=== PATIENT | male | born 1985 | race African-American/Black ===

== ENCOUNTER 2018-09-22 08:33 | Inpatient (IN) | payer OTHER ==
[2018-09-22 09:10] VITALS: BMI 28.4
--- NOTE | 2018-09-22 10:00 | HP ---
CIWA Score Nausea/Vomitin-No Nausea/No Vomiting Muscle Tremors: 7-Severe,w/o Arm Extended Anxiety: 4-Mod. Anxious/Guarded Agitation: 1-Slight > Activity Paroxysmal Sweats: No Perspiration Orientation: 0-Oriented Tacttile Disturbances: 0-None Auditory Disturbances: 0-None Visual Disturbances: 0-None Headache: 0-None Present CIWA-Ar Total Score: 12 - Admission Criteria OASAS Guidelines: Admission for Medically Managed Detox: Requires at least one of the followin. CIWA greater than 12 2. Seizures within the past 24 hours 3. Delirium tremens within the past 24 hours 4. Hallucinations within the past 24 hours 5. Acute intervention needed for co occurring medical disorder 6. Acute intervention needed for co occurring psychiatric disorder 7. Severe withdrawal that cannot be handled at a lower level of care (continued vomiting, continued diarrhea, abnormal vital signs) requiring intravenous medication and/or fluids 8. Admission ROS S - HPI Allergies/Adverse Reactions: Allergies Allergy/AdvReac Type Severity Reaction Status Date / Time No Known Allergies Allergy Verified 09/22/18 09:40 History of Present Illness: patient here requesting detox from etoh use , reports 2 x 6-pk /day x 2 weeks , prior casual use , reports tremors if not drinking , denies seizures, blackouts , falls , starts drinking around noon. Current jer 0.094 , latest use early this morning. utox : kathie , bar pshx : left wrist s/p fall out of window 2016 , r foot ORIF 2/2 football injury 2001 pmhx : hep C (rf=IVDU heroin 1 yr ago ) diagnosed 6 months ago , no treatment as of yet illicits : cannabis since age 10 , etoh since age 11 , cocaine 19, crack cocaine 26 , heroin since age 28 latest use heroin 2 days ago , claims 1 bag IVDU in [place] UE , needles from the exchange , + sharing , + re-using , + abscess right arm 18 months ago MRSA , was at [facility] in [facility] , denies OD cocaine : 50 $ 2 x/week unemployed , finances habit through odd jobs legal : on probation for rivera huongcen[employer] ( taking [employer] phone ) x 3 years tobacco : 1/2 ppd requesting nrt w/ patch psych : ADHD , PTSD from childhood trauma, depression Exam Limitations: No Limitations - Ebola screening Have you traveled outside of the country in the last 21 days: No Have you had contact with anyone from an Ebola affected area: No Have you been sick,other than usual withdrawal symptoms: No Do you have a fever: No - Review of Systems Constitutional: See HPI EENT: reports: Nose Congestion, Other (glasses) Respiratory: reports: No Symptoms reported Cardiac: reports: No Symptoms Reported GI: reports: No Symptoms Reported : reports: No Symptoms Reported Musculoskeletal: reports: No Symptoms Reported Integumentary: reports: No Symptoms Reported Neuro: reports: No Symptoms reported Psychiatric: reports: Judgement Intact, Orientated x3, Anxious, Depressed Patient History - Patient Medical History Hx Asthma: No Hx Chronic Obstructive Pulmonary Disease (COPD): No Hx Cardiac Disorders: No Hx Hypertension: No Hx Seizures: No Hx Diabetes: No Hx Gastrointestinal Disorders: No Hx Genitourinary Disorders: No Hx Sexually Transmitted Disorders: No Hx Renal Disease (ESRD): No Hx Depression: Yes Hx Suicide Attempt: No Hx Schizophrenia: No - Patient Surgical History Past Surgical History: Yes Hx Neurologic Surgery: No Hx Cataract Extraction: No Hx Cardiac Surgery: No Hx Lung Surgery: No Hx Breast Surgery: No Hx Breast Biopsy: No Hx Abdominal Surgery: No Hx Appendectomy: No Hx Cholecystectomy: No Hx Genitourinary Surgery: No Hx Section: No Hx Orthopedic Surgery: Yes (fx, left wrist and right foot) Anesthesia Reaction: No - PPD History Previous Implant?: Yes Documented Results: Negative w/o proof Implanted On Prior R Admission?: No - Smoking Cessation Smoking history: Current every day smoker Have you smoked in the past 12 months: Yes Aproximately how many cigarettes per day: 10 Hx Chewing Tobacco Use: No Initiated information on smoking cessation: No - Substances Abused Crack Route: Smoking Frequency: 1-2 times per week Amount used: $50 Age of first use: 26 Date of Last Use: 09/21/18 Alcohol-beer/vodka Route: Oral Frequency: Daily Amount used: 1-2 6 pks./1 pt. Age of first use: 11 Date of Last Use: 09/21/18 Family Disease History - Family Disease History Family Disease History: Other: Mother (depression, PTSD ), Sister (bipolar d/o , SAD ) Admission Physical Exam BHS - Vital Signs Vital Signs: Vital Signs - 24 hr 09/22/18 09:07 Temperature 96.7 F L Pulse Rate 88 Respiratory 20 Rate Blood Pressure 143/72 - Physical General Appearance: Yes: Disheveled, Moderate Distress, Alcohol on Breath, Anxious HEENTM: Yes: Hearing grossly Normal, Normocephalic, Normal Voice, Pharynx Normal , Nasal Congestion Respiratory: Yes: Chest Non-Tender, Lungs Clear, Normal Breath Sounds Neck: Yes: No masses,lesions,Nodules, Trachea in good position Breast: Yes: Breast Exam Deferred Cardiology: Yes: Regular Rhythm, Regular Rate, S1, S2, Tachycardia Abdominal: Yes: Normal Bowel Sounds, Non Tender, Soft Genitourinary: Yes: Within Normal Limits Back: Yes: Normal Inspection Musculoskeletal: Yes: full range of Motion, Gait Steady Extremities: Yes: Normal Capillary Refill, Normal Inspection, Normal Range of Motion Neurological: Yes: Fully Oriented, Alert, Motor Strength 5/5 Integumentary: Yes: Normal Color, Dry, Warm, Track Lynn ([place] UE R >> left) Lymphatic: Yes: Within Normal Limits - Diagnostic (1) Alcohol dependence Current Visit: Yes Status: Acute Qualifiers: Substance use status: in withdrawal Complication of substance-induced condition: uncomplicated Qualified Code(s): F10.230 - Alcohol dependence with withdrawal, uncomplicated (2) Nicotine dependence Current Visit: Yes Status: Acute Qualifiers: Nicotine product type: cigarettes (3) Cocaine dependence Current Visit: Yes Status: Acute Qualifiers: Substance use status: uncomplicated Qualified Code(s): F14.20 - Cocaine dependence, uncomplicated BHS Breath Alcohol Content Breath Alcohol Content: 0.094 Urine Drug Screen - Results Drug Screen Negative: No Urine Drug Screen Results: KATHIE-Cocaine, BAR-Barbiturates
[2018-09-22] MEDS ORDERED: ACETAMINOPHEN 325 MG TABLET (FP) PO PRN (10:05)
[2018-09-22] MEDS ORDERED: guaiFENesin/D-METHORPHAN HB 10 ML UNIT-DOSE CUPS PO PRN (10:05)
[2018-09-22] MEDS ORDERED: MENTHOL/PHENOL 1 EACH UD MM PRN (10:05)
[2018-09-22] MEDS ORDERED: P-EPHED 60MG/TRIPROLIDI 2.5MG TABLET PO PRN (10:05)
[2018-09-22] MEDS ORDERED: MAGNESIUM CITRATE 300 ML BOTTLE PO PRN (10:05)
[2018-09-22] MEDS ORDERED: chlordiazePOXIDE HCL 25 MG CAPSULE PO PRN (10:05)
[2018-09-22] MEDS ORDERED: IBUPROFEN 400 MG TABLET (FP) PO PRN (10:05)
[2018-09-22] MEDS ORDERED: MAG HYDROX/AL HYDROX/SIMETH 30 ML UNIT-DOSE CUP PO PRN (10:05)
[2018-09-22] MEDS ORDERED: MAGNESIUM HYDROX 2400MG/30ML ORAL SUSPENSION 30 ML CUP PO PRN (10:05)
[2018-09-22] MEDS: NICOTINE 14 MG/24 HOURS TOPICAL PATCH TD SCH (12:31)
--- NOTE | 2018-09-22 13:21 | CONSULT ---
[facility] Psychiatric Consult - Data Date of interview: 09/22/18 Admission source: [facility] Identifying data: First admission to [facility] for this 33 y/o male seeking detoxification treatment on 3 for alcohol,cocaine (crack) and heroin dependence. Patient is single, a father of one, domiciled, currently unemployed and supported on odd jobs. Substance Abuse History: Smoking history: Current every day smoker. Have you smoked in the past 12 months: Yes. Aproximately how many cigarettes per day: 10. Hx Chewing Tobacco Use: No. Initiated information on smoking cessation: Yes. - Substances Abused. Crack. Route: Smoking. Frequency: 1-2 times per week. Amount used: $50. Age of first use: 26. Date of Last Use: . Alcohol-beer/vodka. Route: Oral. Frequency: Daily. Amount used: 1-2 6 pks./1 pt. Age of first use: 11. Date of Last Use: 09/21/18 Medical History: History of MERSA infection (abcess of right arm) about 18 months ago, orthosurgery (ORIF procedure) in 2001 for fracture of right foot from sports (football) injury and fracture of left wrist (fall from a window in 2016). Patient endorses good general health in this interview. Psychiatric History: No reported history of psychiatric hospitalizations. Patient declares current psychiatric OPD care at the [facility] in [place], [place]. Diagnosed with ADHD, MDD and PTSD. Mr Snow is prescribed wellbutrin, vistaril and other (unnamed) medications. Denies history of suicide attempts. Physical/Sexual Abuse/Trauma History: Patient declines to discuss issues pertinent to traumas in childhood/adolescence. Additional Comment: Urine Drug Screen Results: JT-Cocaine, BAR-Barbiturates. Noted. Mental Status Exam - Mental Status Exam Alert and Oriented to: Time, Place, Person Cognitive Function: Good Patient Appearance: Well Groomed (muscular built ; tattoos on both arms ) Mood: Nervous, Apprehensive, Hopeful Affect: Appropriate, Mood Congruent Patient Behavior: Appropriate, Cooperative Speech Pattern: Clear Voice Loudness: Normal Thought Process: Goal Oriented Thought Disorder: Not Present Hallucinations: Denies Suicidal Ideation: Denies Homicidal Ideation: Denies Insight/Judgement: Poor Sleep: Fair Appetite: Good Muscle strength/Tone: Normal Gait/Station: Normal Psychiatric Findings - Problem List ([place] 1, 2,3) (1) Alcohol dependence Current Visit: Yes Status: Acute Qualifiers: Substance use status: in withdrawal Complication of substance-induced condition: uncomplicated Qualified Code(s): F10.230 - Alcohol dependence with withdrawal, uncomplicated (2) Cocaine dependence Current Visit: Yes Status: Acute Qualifiers: Substance use status: uncomplicated Qualified Code(s): F14.20 - Cocaine dependence, uncomplicated (3) Nicotine dependence Current Visit: Yes Status: Acute Qualifiers: Nicotine product type: cigarettes (4) Substance induced mood disorder Current Visit: Yes Status: Acute (5) Post traumatic stress disorder (PTSD) Current Visit: Yes Status: Chronic Comment: On medications. Self-report. - Initial Treatment Plan Initial Treatment Plan: Psychoeducation. Sleep hygiene. Detoxification. Pharmacy claims reviewed for verification : refills were issued on 08/24/18 for wellbutrin, methylphenidate and prazosin ([facility]). Will resume wellbutrin XL 150 mg po daily. Patient is made aware of the risk of seizures. Mr Snow consents (verbally) to this careplan. Observation.
[2018-09-22] MEDS: chlordiazePOXIDE HCL 25 MG CAPSULE PO SCH ×2 (16:53→22:09)
[2018-09-22 17:08] LABS: URINE APPEARANCE SLCLOUDY; URINE BILIRUBIN NEGATIVE (<2.0 mg/dL); URINE COLOR YELLOW; URINE GLUCOSE (UA) NEGATIVE (NEGATIVE); URINE KETONE TRACE (NEGATIVE); URINE LEUK ESTERASE NEGATIVE (NEGATIVE); URINE NITRITE NEGATIVE (NEGATIVE); URINE PROTEIN 1+ (NEGATIVE); URINE UROBILINOGEN NEGATIVE mg/dL (0.2-1.0)
[2018-09-22 17:42] LABS: EPI CELLS RARE /HPF (FEW); URINE MUCUS FEW
[2018-09-22] MEDS: THIAMINE HCL 100 MG TABLET (FP) PO SCH (22:08)
[2018-09-22] MEDS: MELATONIN 5 MG TABLETS PO PRN (22:09)
[2018-09-23] MEDS: chlordiazePOXIDE HCL 25 MG CAPSULE PO SCH ×4 (05:03→22:02)
[2018-09-23] MEDS: PRENATAL VITAMINS W/ FOLIC ACID TABLET (FP) PO SCH (10:06)
[2018-09-23] MEDS: NICOTINE 14 MG/24 HOURS TOPICAL PATCH TD SCH (10:07)
--- NOTE | 2018-09-23 10:21 | PN ---
S CIWA - CIWA Score Nausea/Vomitin-No Nausea/No Vomiting Muscle Tremors: 2 Anxiety: 3 Agitation: 2 Paroxysmal Sweats: 3 Orientation: 0-Oriented Tacttile Disturbances: 0-None Auditory Disturbances: 0-None Visual Disturbances: 0-None Headache: 0-None Present CIWA-Ar Total Score: 10 BHS Progress Note (SOAP) Subjective: PATIENT C/O ANXIETY, RESTLESSNESS, CHILLS, SWEATS, AND SHAKES. Objective: 09/23/18 10:16 Vital Signs Temperature 96.9 F L 09/23/18 09:20 Pulse Rate 69 09/23/18 09:20 Respiratory Rate 17 09/23/18 09:20 Blood Pressure 125/63 09/23/18 09:20 O2 Sat by Pulse Oximetry (%) Laboratory Tests 09/22/18 09/22/18 11:25 12:35 Urine Color Yellow Urine Appearance Slcloudy Urine pH 5.0 Ur Specific [place] 1.029 Urine Protein 1+ H Urine Glucose (UA) Negative Urine Ketones Trace H Urine Blood Negative Urine Nitrite Negative Urine Bilirubin Negative Urine Urobilinogen Negative Ur Leukocyte Esterase Negative Urine WBC (Auto) 1 Urine RBC (Auto) None Ur Epithelial Cells Rare Urine Mucus Few HIV 1&2 Antibody Screen Negative HIV P24 Antigen Negative PE: ALERT AND ORIENTED X 3 SKIN WARM, MOIST, + GOOSEFLESH CAR S1S2 RESP CTA BL EXT +TREMORS, FULL ROM AMB AD RAFA +ANXIETY Assessment: 09/23/18 10:21 WITHDRAWAL SX Plan: CONTINUE DETOX ENCOURAGE ORAL FLUIDS CONTINUE TO MONITOR CLINICALLY
[2018-09-23 10:44] LABS: HEMATOCRIT 41.9 % (35.4-49); HEMOGLOBIN 13.5 GM/dL (11.7-16.9); MCH 27.9 pg (25.7-33.7); MCHC 32.2 g/dl (32.0-35.9); MEAN CELL VOLUME 86.6 fl (80-96); MEAN PLT VOLUME 8.3 fl (7.5-11.1); PLATELET COUNT 250 K/MM3 (134-434); RBC 4.84 M/mm3 (4.00-5.60); RDW 14.2 % (11.9-15.9); WHITE BLOOD COUNT 6.8 K/mm3 (4.0-10.0)
[2018-09-23 11:28] LABS: ALBUMIN 3.8 g/dl (3.4-5.0); ALK PHOS 83 U/L (45-117); ANION GAP 12 MMOL/L (8-16); BILIRUBIN,TOTAL 0.3 mg/dL (0.2-1); BLOOD UREA NITROGEN 19 mg/dL (7-18); CALCIUM 8.3 mg/dL (8.5-10.1); CHLORIDE 105 mmol/L (98-107); CO2 22 mmol/L (21-32); GLUCOSE,RANDOM 65 mg/dL (74-106); POTASSIUM 4.2 mmol/L (3.5-5.1); SGOT/AST 59 U/L (15-37); SGPT/ALT 92 U/L (13-61); SODIUM 139 mmol/L (136-145); TOT PROT 7.6 g/dl (6.4-8.2)
[2018-09-23] MEDS: NICOTINE POLACRILEX 2 MG GUM BUC PRN (21:31)
[2018-09-23] MEDS: THIAMINE HCL 100 MG TABLET (FP) PO SCH (22:02)
[2018-09-23] MEDS: MELATONIN 5 MG TABLETS PO PRN (22:03)
[2018-09-24] MEDS: chlordiazePOXIDE HCL 25 MG CAPSULE PO SCH ×2 (05:11→10:13)
[2018-09-24] MEDS: NICOTINE 14 MG/24 HOURS TOPICAL PATCH TD SCH (10:11)
[2018-09-24] MEDS: PRENATAL VITAMINS W/ FOLIC ACID TABLET (FP) PO SCH (10:12)
[2018-09-24] MEDS: NICOTINE POLACRILEX 2 MG GUM BUC PRN ×3 (10:14→20:00)
--- NOTE | 2018-09-24 10:29 | PN ---
[facility] CIWA - CIWA Score Nausea/Vomitin-No Nausea/No Vomiting Muscle Tremors: 3 Anxiety: 3 Agitation: 3 Paroxysmal Sweats: 3 Orientation: 0-Oriented Tacttile Disturbances: 0-None Auditory Disturbances: 0-None Visual Disturbances: 0-None Headache: 0-None Present CIWA-Ar Total Score: 12 S Progress Note (SOAP) Subjective: PATIENT C/O ANXIETY/RESTLESSNESS, NIGHT SWEATS AND SHAKES (COME AND GO) Objective: 09/24/18 10:27 Vital Signs Temperature 97.0 F L 09/24/18 09:16 Pulse Rate 73 09/24/18 09:16 Respiratory Rate 18 09/24/18 09:16 Blood Pressure 126/65 09/24/18 09:16 O2 Sat by Pulse Oximetry (%) Laboratory Tests 09/22/18 09/22/18 09/23/18 11:25 12:35 06:00 WBC 6.8 RBC 4.84 Hgb 13.5 Hct 41.9 MCV 86.6 MCH 27.9 MCHC 32.2 RDW 14.2 Plt Count 250 MPV 8.3 Sodium Potassium Chloride Carbon Dioxide Anion Gap BUN Creatinine Creat Clearance w eGFR Random Glucose Calcium Total Bilirubin AST ALT Alkaline Phosphatase Total Protein Albumin Urine Color Yellow Urine Appearance Slcloudy Urine pH 5.0 Ur Specific [place] 1.029 Urine Protein 1+ H Urine Glucose (UA) Negative Urine Ketones Trace H Urine Blood Negative Urine Nitrite Negative Urine Bilirubin Negative Urine Urobilinogen Negative Ur Leukocyte Esterase Negative Urine WBC (Auto) 1 Urine RBC (Auto) None Ur Epithelial Cells Rare Urine Mucus Few RPR Titer HIV 1&2 Antibody Screen Negative HIV P24 Antigen Negative 09/23/18 09/23/18 06:00 06:00 WBC RBC Hgb Hct MCV MCH MCHC RDW Plt Count MPV Sodium 139 Potassium 4.2 Chloride 105 Carbon Dioxide 22 Anion Gap 12 BUN 19 H Creatinine 1.0 Creat Clearance w eGFR > 60 Random Glucose 65 L Calcium 8.3 L Total Bilirubin 0.3 AST 59 H ALT 92 H Alkaline Phosphatase 83 Total Protein 7.6 Albumin 3.8 Urine Color Urine Appearance Urine pH Ur Specific [place] Urine Protein Urine Glucose (UA) Urine Ketones Urine Blood Urine Nitrite Urine Bilirubin Urine Urobilinogen Ur Leukocyte Esterase Urine WBC (Auto) Urine RBC (Auto) Ur Epithelial Cells Urine Mucus RPR Titer Nonreactive HIV 1&2 Antibody Screen HIV P24 Antigen PE: ALERT AND ORIENTED X 3 SKIN + GOOSE FLESH, WARM AND MOIST CAR S1S2 RESP CTA BL EXT + TREMORS ANXIOUS Assessment: 09/24/18 10:28 WITHDRAWAL SX Plan: CONTINUE DETOX ENCOURAGE ORAL FLUIDS CONTINUE TO MONITOR CLINICALLY
[2018-09-24] MEDS: chlordiazePOXIDE 5 MG CAPSULE PO SCH ×2 (17:15→22:05)
[2018-09-24] MEDS: THIAMINE HCL 100 MG TABLET (FP) PO SCH (22:05)
[2018-09-24] MEDS: MELATONIN 5 MG TABLETS PO PRN (22:06)
[2018-09-25] MEDS: chlordiazePOXIDE 5 MG CAPSULE PO SCH ×2 (06:08→10:21)
[2018-09-25] MEDS: PRENATAL VITAMINS W/ FOLIC ACID TABLET (FP) PO SCH (10:21)
[2018-09-25] MEDS: NICOTINE 14 MG/24 HOURS TOPICAL PATCH TD SCH (10:21)
[2018-09-25] MEDS: NICOTINE POLACRILEX 2 MG GUM BUC PRN ×3 (10:21→19:20)
--- NOTE | 2018-09-25 11:06 | PN ---
[facility] Progress Note Note: PATIENT PRESENTS WITH SLEEP DISTURBANCE AND SWEATING, BUT FEELS BETTER. FOR D/C IN AM. Vital Signs Temperature 96.4 F L 09/25/18 10:01 Pulse Rate 74 09/25/18 10:01 Respiratory Rate 19 09/25/18 10:01 Blood Pressure 115/66 09/25/18 10:01 O2 Sat by Pulse Oximetry (%) Laboratory Last Values WBC 6.8 K/mm3 (4.0-10.0) 09/23/18 06:00 RBC 4.84 M/mm3 (4.00-5.60) 09/23/18 06:00 Hgb 13.5 GM/dL (11.7-16.9) 09/23/18 06:00 Hct 41.9 % (35.4-49) 09/23/18 06:00 MCV 86.6 fl (80-96) 09/23/18 06:00 MCH 27.9 pg (25.7-33.7) 09/23/18 06:00 MCHC 32.2 g/dl (32.0-35.9) 09/23/18 06:00 RDW 14.2 % (11.9-15.9) 09/23/18 06:00 Plt Count 250 K/MM3 (134-434) 09/23/18 06:00 MPV 8.3 fl (7.5-11.1) 09/23/18 06:00 Sodium 139 mmol/L (136-145) 09/23/18 06:00 Potassium 4.2 mmol/L (3.5-5.1) 09/23/18 06:00 Chloride 105 mmol/L (98-107) 09/23/18 06:00 Carbon Dioxide 22 mmol/L (21-32) 09/23/18 06:00 Anion Gap 12 MMOL/L (8-16) 09/23/18 06:00 BUN 19 mg/dL (7-18) H 09/23/18 06:00 Creatinine 1.0 mg/dL (0.55-1.3) 09/23/18 06:00 Creat Clearance w eGFR > 60 (>60) 09/23/18 06:00 Random Glucose 65 mg/dL (74-106) L 09/23/18 06:00 Calcium 8.3 mg/dL (8.5-10.1) L 09/23/18 06:00 Total Bilirubin 0.3 mg/dL (0.2-1) 09/23/18 06:00 AST 59 U/L (15-37) H 09/23/18 06:00 ALT 92 U/L (13-61) H 09/23/18 06:00 Alkaline Phosphatase 83 U/L (45-117) 09/23/18 06:00 Total Protein 7.6 g/dl (6.4-8.2) 09/23/18 06:00 Albumin 3.8 g/dl (3.4-5.0) 09/23/18 06:00 Urine Color Yellow 09/22/18 12:35 Urine Appearance Slcloudy 09/22/18 12:35 Urine pH 5.0 (5.0-8.0) 09/22/18 12:35 Ur Specific [place] 1.029 (1.010-1.035) 09/22/18 12:35 Urine Protein 1+ (NEGATIVE) H 09/22/18 12:35 Urine Glucose (UA) Negative (NEGATIVE) 09/22/18 12:35 Urine Ketones Trace (NEGATIVE) H 09/22/18 12:35 Urine Blood Negative (NEGATIVE) 09/22/18 12:35 Urine Nitrite Negative (NEGATIVE) 09/22/18 12:35 Urine Bilirubin Negative (<2.0 mg/dL) 09/22/18 12:35 Urine Urobilinogen Negative mg/dL (0.2-1.0) 09/22/18 12:35 Ur Leukocyte Esterase Negative (NEGATIVE) 09/22/18 12:35 Urine WBC (Auto) 1 /hpf (3-5) 09/22/18 12:35 Urine RBC (Auto) None /hpf (0-3) 09/22/18 12:35 Ur Epithelial Cells Rare /HPF (FEW) 09/22/18 12:35 Urine Mucus Few 09/22/18 12:35 RPR Titer Nonreactive (NONREACTIVE) 09/23/18 06:00 HIV 1&2 Antibody Screen Negative 09/22/18 11:25 HIV P24 Antigen Negative 09/22/18 11:25 PE: ALERT AND ORIENTED X 3 SKIN WARM AND MOIST EXT FULL ROM, NO TREMORS AMB AD RAFA WITHDRAWAL SX CONTINUE DETOX ENCOURAGE FLUIDS D/C IN AM
[2018-09-25] MEDS: chlordiazePOXIDE HCL 10 MG CAPSULE PO SCH ×2 (17:12→22:06)
[2018-09-25] MEDS: THIAMINE HCL 100 MG TABLET (FP) PO SCH (22:06)
[2018-09-25] MEDS: MELATONIN 5 MG TABLETS PO PRN (22:06)
[2018-09-26] MEDS: chlordiazePOXIDE HCL 10 MG CAPSULE PO SCH (05:27)
[2018-09-26 09:34] VITALS: BP 111/69; PULSE 69; TEMP 96.6
--- NOTE | 2018-09-26 10:53 | PN ---
BHS Progress Note (SOAP) Subjective: DETOX COMPLETED. ALERT O X 3 PT SAW THE COUNSELOR BEFORE LEAVING. INFORMATION ON AFTERCARE PROVIDED TO PATIENT. Objective: 09/26/18 10:52 Vital Signs 09/26/18 09/26/18 09/26/18 03:30 06:21 06:26 Temperature 97.1 F L Pulse Rate 60 Respiratory 18 18 18 Rate Blood Pressure 106/68 09/26/18 09:30 Temperature 96.6 F L Pulse Rate 69 Respiratory 18 Rate Blood Pressure 111/69 Assessment: 09/26/18 10:53 NAD Plan: D/C PT TODAY FOLLOW UP WITH AFTERCARE
--- NOTE | 2018-09-26 10:56 | DS ---
[facility] Detox Discharge Summary Admission Date: 09/22/18 Discharge Date: 09/26/18 - History Present History: Alcohol Dependence, Cocaine Dependence Pertinent Past History: PLEASE PROBLEM LIST - Physical Exam Results Vital Signs: Vital Signs Temperature 96.6 F L 09/26/18 09:30 Pulse Rate 69 09/26/18 09:30 Respiratory Rate 18 09/26/18 09:30 Blood Pressure 111/69 09/26/18 09:30 O2 Sat by Pulse Oximetry (%) Pertinent Admission Physical Exam Findings: WITHDRAWAL SX - Treatment Hospital Course: Detox Protocol Followed, Detoxed Safely, Responded well, Discharged Condition Good - Medication Discharge Medications: Ambulatory Orders Unobtainable 09/22/18 - Diagnosis (1) Alcohol dependence with uncomplicated withdrawal Status: Acute (2) Cocaine dependence Status: Acute Qualifiers: Substance use status: uncomplicated Qualified Code(s): F14.20 - Cocaine dependence, uncomplicated (3) Nicotine dependence Status: Acute Qualifiers: Nicotine product type: cigarettes Substance use status: in withdrawal Qualified Code(s): F17.213 - Nicotine dependence, cigarettes, with withdrawal - AMA Did Patient Leave Against Medical Advice: No
== END 2018-09-26 10:06 | disposition home or self-care (01) | DRG 774 ==
LOC: YASAS 08:33 → Y3N 10:55
PROC: HZ2ZZZZ Detoxification Services for Substance Abuse Treatment (ICD-10-PCS; principal; 2018-09-22)
DX: F10.230 Alcohol dependence with withdrawal, uncomplicated (principal); F14.20 Cocaine dependence, uncomplicated; F17.213 Nicotine dependence, cigarettes, with withdrawal; F19.24 Other psychoactive substance dependence with psychoactive substance-induced mood disorder; F43.10 Post-traumatic stress disorder, unspecified
CPT/HCPCS: 36415; 80053; 81003; 81015; 85027; 86593; 87389

== ENCOUNTER 2019-03-10 08:13 | Inpatient (IN) | payer OTHER ==
[2019-03-10 08:43] VITALS: BMI 28.5
--- NOTE | 2019-03-10 09:15 | HP ---
COWS - Scale Resting Pulse: 1= [place] 81-100 Sweatin= Chills/Flushing Restless Observation: 3= Extraneous Movement Pupil Size: 1= Pupils >than Normal Bone or Joint Aches: 2= Severe Diffuse Aches Runny Nose/ Eye Tearin= Runny Nose/Eyes GI Upset > 30mins: 2= Nausea/Diarrhea Tremor Observation: 2= Slight Tremor Visible Yawning Observation: 1= 1-2x During Session Anxiety or Irritability: 2=Irritable/Anxious Goose Flesh Skin: 0=Smooth Skin COWS Score: 17 CIWA Score - Admission Criteria [facility]ASAS Guidelines: Admission for Medically Managed Detox: Requires at least one of the followin. CIWA greater than 12 2. Seizures within the past 24 hours 3. Delirium tremens within the past 24 hours 4. Hallucinations within the past 24 hours 5. Acute intervention needed for co occurring medical disorder 6. Acute intervention needed for co occurring psychiatric disorder 7. Severe withdrawal that cannot be handled at a lower level of care (continued vomiting, continued diarrhea, abnormal vital signs) requiring intravenous medication and/or fluids 8. Admission ROS S - HPI Chief Complaint: i need help to stop heroin and crack and alcohol Allergies/Adverse Reactions: Allergies Allergy/AdvReac Type Severity Reaction Status Date / Time No Known Allergies Allergy Verified 03/10/19 08:28 History of Present Illness: this 34 years old garcia=ith heroin,crack and alcohol dependence,seeking detix, withdrawal symptom last detox 09/22/18 to 09/26/18 hepatitis c no treatment nicotine dependence 1 pack/day,would like nicotine patch and gum had previous admissions in detox longest period of sobriety 13 months ptsd,depression,adhd,anxiety last medication 1 month ago Exam Limitations: No Limitations - Ebola screening Have you traveled outside of the country in the last 21 days: No (N) Have you had contact with anyone from an Ebola affected area: No Do you have a fever: No - Review of Systems Constitutional: Chills, Loss of Appetite, Malaise, Night Sweats, Changes in sleep, Weakness EENT: reports: Tearing, Nose Congestion Respiratory: reports: No Symptoms reported Cardiac: reports: No Symptoms Reported GI: reports: Nausea, Poor Appetite, Abdominal cramping Musculoskeletal: reports: Back Pain, Joint Pain, Muscle Pain, Joint Stiffness Integumentary: reports: Dryness Neuro: reports: Headache, Tremors Endocrine: reports: No Symptoms Reported Hematology: reports: No Symptoms Reported Psychiatric: reports: No Sypmtoms Reported, Judgement Intact, Mood/Affect Appropiate, Orientated x3 Other Systems: Reviewed and Negative Patient History - Patient Medical History Hx Anemia: No Hx Asthma: No Hx Chronic Obstructive Pulmonary Disease (COPD): No Hx Cancer: No Hx Cardiac Disorders: No Hx Congestive Heart Failure: No Hx Hypertension: No Hx Hypercholesterolemia: No Hx Pacemaker: No HX Cerebrovascular Accident: No Hx Seizures: No Hx Dementia: No Hx Diabetes: No Hx Gastrointestinal Disorders: No Hx Liver Disease: No Hx Genitourinary Disorders: No Hx Sexually Transmitted Disorders: No Hx Renal Disease (ESRD): No Hx Thyroid Disease: No Hx Human Immunodeficiency Virus (HIV): No (last 02/12 negative) Hx Hepatitis C: Yes (no treatment) Hx Depression: Yes Hx Suicide Attempt: No Hx Bipolar Disorder: No Hx Schizophrenia: No Other Medical History: anxiety,ptsd,adhd,insomnia - Patient Surgical History Past Surgical History: Yes Hx Neurologic Surgery: No Hx Cataract Extraction: No Hx Cardiac Surgery: No Hx Lung Surgery: No Hx Breast Surgery: No Hx Breast Biopsy: No Hx Abdominal Surgery: No Hx Appendectomy: No Hx Cholecystectomy: No Hx Genitourinary Surgery: No Hx Section: No Hx Orthopedic Surgery: Yes (fx, left wrist and right foot 2017 vasser brother ) Anesthesia Reaction: No - PPD History Previous Implant?: Yes Documented Results: Negative w/proof Implanted On Prior R Admission?: Yes Date: 09/24/18 Results: 0 mm PPD to be Administered?: No - Smoking Cessation Smoking history: Current every day smoker Have you smoked in the past 12 months: Yes Aproximately how many cigarettes per day: 20 Hx Chewing Tobacco Use: No Initiated information on smoking cessation: Yes 'Breaking Loose' booklet given: 03/10/19 - Substance & Tx. History Hx Alcohol Use: Yes Hx Substance Use: Yes Substance Use Type: Alcohol, Cocaine, Heroin Hx Substance Use Treatment: Yes (C 09/22/18 to 09/26/18) - Substances abused Crack Substance route: Smoking Frequency: Daily Amount used: 2 gram Age of first use: 26 Date of last use: 03/10/19 Heroin Substance route: Injection Frequency: Daily Amount used: 1 to 2 grams 10 to 20 bags Age of first use: 26 Date of last use: 03/10/19 Other Other (specify): Jenny Substance route: Oral Frequency: 1-2 times per week Amount used: 1 gram Age of first use: 26 Date of last use: 03/08/19 Alcohol Substance route: Oral Frequency: Daily Amount used: 6 packs of 24 ozs of beer Age of first use: 13 Date of last use: 03/10/19 Family Disease History - Family Disease History Family Disease History: Other: Mother (depression, PTSD ), Sister (bipolar d/o , SAD ) Admission Physical Exam [facility] - Vital Signs Vital Signs: Vital Signs - 24 hr 03/10/19 08:28 Temperature 97.0 F L Pulse Rate 90 Respiratory 18 Rate Blood Pressure 126/68 - Physical General Appearance: Yes: Moderate Distress, Tremorous, Irritable, Sweating, Anxious HEENTM: Yes: Normal ENT Inspection, RAQUEL, Pharynx Normal Respiratory: Yes: Within Normal Limits, Lungs Clear, Normal Breath Sounds, No Respiratory Distress Neck: Yes: Within Normal Limits, Supple, Trachea in good position Breast: Yes: Within Normal Limits Cardiology: Yes: Within Normal Limits, Regular Rhythm, Regular Rate, S1, S2 Abdominal: Yes: Within Normal Limits, Normal Bowel Sounds, Non Tender, Flat, Soft Genitourinary: Yes: Within Normal Limits Back: Yes: Muscle Spasm Musculoskeletal: Yes: full range of Motion, Back pain, Muscle Pain Extremities: Yes: Normal Capillary Refill, Normal Inspection, Normal Range of Motion, Other (scar of left wrist) Neurological: Yes: jowl trimmer II-XII NML intact, Fully Oriented, Alert, Motor Strength 5/5 Integumentary: Yes: Dry, Track [place], Other (abrasion of both legs) Lymphatic: Yes: Within Normal Limits - Diagnostic (1) Opioid dependence with withdrawal Current Visit: Yes Status: Acute (2) Alcohol dependence with uncomplicated withdrawal Current Visit: No Status: Acute (3) Cocaine dependence Current Visit: No Status: Acute Qualifiers: Substance use status: uncomplicated Qualified Code(s): F14.20 - Cocaine dependence, uncomplicated (4) Nicotine dependence Current Visit: No Status: Acute Qualifiers: Nicotine product type: cigarettes Substance use status: in withdrawal Qualified Code(s): F17.213 - Nicotine dependence, cigarettes, with withdrawal (5) Post traumatic stress disorder (PTSD) Current Visit: No Status: Chronic Comment: On medications. Self-report. (6) Hepatitis C Current Visit: Yes Status: Acute (7) Insomnia secondary to depression with anxiety Current Visit: Yes Status: Acute (8) IVDU (intravenous drug user) Current Visit: Yes Status: Acute Cleared for Admission S - Detox or Rehab [facility] Level of Care: Medically Managed Detox Regimen/Protocol: Methadone/Valium Breathalyzer - Breathalyzer Breathalyzer: 0.017 Urine Drug Screen - Test Device Lot number: [id number] Expiration date: 11/26/20 - Control Is test valid?: Yes - Results Drug screen NEGATIVE: No Urine drug screen results: THC-Marijuana, JT-Cocaine, MET-Methamphetamine, OXY- Oxycodone Inpatient Rehab Admission - Rehab Decision to Admit Inpatient rehab admission?: No
[2019-03-10] MEDS ORDERED: cloNIDine HCL 0.1 MG TABLET PO PRN (09:31)
[2019-03-10] MEDS ORDERED: MAGNESIUM CITRATE 300 ML BOTTLE PO PRN (09:39)
[2019-03-10] MEDS ORDERED: ACETAMINOPHEN 325 MG TABLET (FP) PO PRN ×2 (09:39)
[2019-03-10] MEDS ORDERED: MAG HYDROX/AL HYDROX/SIMETH 30 ML UNIT-DOSE CUP PO PRN (09:39)
[2019-03-10] MEDS ORDERED: BISMUTH SUBSALICYLATE 262 MG/15 ML BTL PO PRN (09:39)
[2019-03-10] MEDS ORDERED: IBUPROFEN 400 MG TABLET (FP) PO PRN (09:39)
[2019-03-10] MEDS ORDERED: MAGNESIUM HYDROX 2400MG/30ML ORAL SUSPENSION 30 ML CUP PO PRN (09:39)
[2019-03-10] MEDS ORDERED: MENTHOL/PHENOL 1 EACH UD MM PRN (09:39)
[2019-03-10] MEDS ORDERED: METHADONE HCL 10 MG TABLET (FOR DETOX USE ONLY) PO ONE ×2 (10:20→23:00)
[2019-03-10] MEDS ORDERED: diazePAM 5 MG TABLET PO SCH (14:00)
[2019-03-10 14:29] LABS: PH,URINE 5.5 (5.0-8.0); URINE APPEARANCE CLEAR; URINE BILIRUBIN NEGATIVE (NEGATIVE); URINE COLOR YELLOW; URINE GLUCOSE (UA) NEGATIVE (NEGATIVE); URINE KETONE 1+ (NEGATIVE); URINE LEUK ESTERASE NEGATIVE (NEGATIVE); URINE NITRITE NEGATIVE (NEGATIVE); URINE PROTEIN NEGATIVE (NEGATIVE)
[2019-03-10 14:29] LABS: HEMATOCRIT 44.6 % (35.4-49); HEMOGLOBIN 14.5 GM/dL (11.7-16.9); MCH 28.3 pg (25.7-33.7); MCHC 32.5 g/dl (32.0-35.9); MEAN CELL VOLUME 87.1 fl (80-96); MEAN PLT VOLUME 8.7 fl (7.5-11.1); PLATELET COUNT 262 K/MM3 (134-434); RBC 5.12 M/mm3 (4.00-5.60)
[2019-03-10 14:34] LABS: ALBUMIN 3.9 g/dl (3.4-5.0); BILIRUBIN,TOTAL 0.7 mg/dL (0.2-1); CALCIUM 9.2 mg/dL (8.5-10.1); POTASSIUM 4.5 mmol/L (3.5-5.1)
[2019-03-10] MEDS: BACITRACIN 0.9 GM PACKET TP SCH (22:36)
[2019-03-10] MEDS: THIAMINE HCL 100 MG TABLET (FP) PO SCH (22:36)
[2019-03-10] MEDS: METHOCARBAMOL 500 MG TABLET PO PRN (22:37)
[2019-03-11] MEDS: NICOTINE POLACRILEX 2 MG GUM BUC PRN ×4 (05:50→22:06)
[2019-03-11] MEDS: NICOTINE 21 MG/24 HOURS TOPICAL PATCH TD SCH (09:18)
[2019-03-11] MEDS ORDERED: METHADONE HCL 10 MG TABLET (FOR DETOX USE ONLY) PO ONE (10:00)
[2019-03-11] MEDS: PRENATAL VITAMINS W/ FOLIC ACID TABLET (FP) PO SCH (10:15)
[2019-03-11] MEDS: BACITRACIN 0.9 GM PACKET TP SCH ×2 (10:20→22:04)
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
[2019-03-11] MEDS: diazePAM 5 MG TABLET PO SCH ×2 (13:00→22:04)
--- NOTE | 2019-03-11 14:20 | PN ---
S CIWA - CIWA Score Nausea/Vomitin Muscle Tremors: 2 Anxiety: 2 Agitation: 2 Paroxysmal Sweats: 1-Minimal Palms Moist Orientation: 0-Oriented Tacttile Disturbances: 1-Very Mild Itch/Numbness Auditory Disturbances: 1-Very Mild Visual Disturbances: 0-None Headache: 2-Mild CIWA-Ar Total Score: 13 BHS COWS - Scale Resting Pulse: 1= [place] 81-100 Sweatin= Chills/Flushing Restless Observation: 3= Extraneous Movement Pupil Size: 1= Pupils >than Normal Bone or Joint Aches: 2= Severe Diffuse Aches Runny Nose/ Eye Tearin= Nasal Congestion GI Upset > 30mins: 2= Nausea/Diarrhea Tremor Observation of Outstretched Hands: 2= Slight Tremor Visible Yawning Observation: 1= 1-2x During Session Anxiety or Irritability: 2=Irritable/Anxious Goose Flesh Skin: 0=Smooth Skin COWS Score: 16 BHS Progress Note (SOAP) Subjective: alert,irritable,anxious,interrupted sleep,tremor,pain in the body and interrupted sleep Objective: 03/11/19 14:18 Vital Signs Temperature 98.2 F 03/11/19 10:28 Pulse Rate 82 03/11/19 10:28 Respiratory Rate 18 03/11/19 10:28 Blood Pressure 148/83 03/11/19 10:28 O2 Sat by Pulse Oximetry (%) 03/11/19 14:18 Laboratory Last Values WBC 5.0 K/mm3 (4.0-10.0) 03/10/19 10:10 RBC 5.12 M/mm3 (4.00-5.60) 03/10/19 10:10 Hgb 14.5 GM/dL (11.7-16.9) 03/10/19 10:10 Hct 44.6 % (35.4-49) 03/10/19 10:10 MCV 87.1 fl (80-96) 03/10/19 10:10 MCH 28.3 pg (25.7-33.7) 03/10/19 10:10 MCHC 32.5 g/dl (32.0-35.9) 03/10/19 10:10 RDW 15.0 % (11.9-15.9) 03/10/19 10:10 Plt Count 262 K/MM3 (134-434) 03/10/19 10:10 MPV 8.7 fl (7.5-11.1) 03/10/19 10:10 Sodium 138 mmol/L (136-145) 03/10/19 10:10 Potassium 4.5 mmol/L (3.5-5.1) 03/10/19 10:10 Chloride 103 mmol/L (98-107) 03/10/19 10:10 Carbon Dioxide 28 mmol/L (21-32) 03/10/19 10:10 Anion Gap 8 MMOL/L (8-16) 03/10/19 10:10 BUN 12 mg/dL (7-18) 03/10/19 10:10 Creatinine 1.0 mg/dL (0.55-1.3) 03/10/19 10:10 Est GFR (CKD-EPI)AfAm 111.73 03/10/19 10:10 Est GFR (CKD-EPI)NonAf 96.40 03/10/19 10:10 Random Glucose 79 mg/dL (74-106) 03/10/19 10:10 Calcium 9.2 mg/dL (8.5-10.1) 03/10/19 10:10 Total Bilirubin 0.7 mg/dL (0.2-1) 03/10/19 10:10 AST 102 U/L (15-37) H 03/10/19 10:10 ALT 134 U/L (13-61) H 03/10/19 10:10 Alkaline Phosphatase 76 U/L (45-117) 03/10/19 10:10 Total Protein 8.0 g/dl (6.4-8.2) 03/10/19 10:10 Albumin 3.9 g/dl (3.4-5.0) 03/10/19 10:10 Urine Color Yellow 03/10/19 11:50 Urine Appearance Clear 03/10/19 11:50 Urine pH 5.5 (5.0-8.0) 03/10/19 11:50 Ur Specific [place] 1.022 (1.010-1.035) 03/10/19 11:50 Urine Protein Negative (NEGATIVE) 03/10/19 11:50 Urine Glucose (UA) Negative (NEGATIVE) 03/10/19 11:50 Urine Ketones 1+ (NEGATIVE) H 03/10/19 11:50 Urine Blood Negative (NEGATIVE) 03/10/19 11:50 Urine Nitrite Negative (NEGATIVE) 03/10/19 11:50 Urine Bilirubin Negative (NEGATIVE) 03/10/19 11:50 Urine Urobilinogen 1.0 mg/dL (0.2-1.0) 03/10/19 11:50 Ur Leukocyte Esterase Negative (NEGATIVE) 03/10/19 11:50 RPR Titer Nonreactive (NONREACTIVE) 03/10/19 10:10 Assessment: 03/11/19 14:19 withdrawal symptom Plan: continue detox,repeat alt,ast,inr in am for elevation of alt,ast,d/c tylenol
[2019-03-11] MEDS: THIAMINE HCL 100 MG TABLET (FP) PO SCH (22:04)
[2019-03-11] MEDS: MELATONIN 5 MG TABLETS PO PRN (22:05)
[2019-03-12] MEDS ORDERED: diazePAM 5 MG TABLET PO ONE (06:00)
[2019-03-12] MEDS ORDERED: METHADONE HCL 10 MG TABLET (FOR DETOX USE ONLY) PO ONE (10:00)
[2019-03-12 10:05] LABS: SGOT/AST 86 U/L (15-37); SGPT/ALT 109 U/L (13-61)
[2019-03-12] MEDS: NICOTINE 21 MG/24 HOURS TOPICAL PATCH TD SCH ×2 (10:05→10:14)
[2019-03-12] MEDS: PRENATAL VITAMINS W/ FOLIC ACID TABLET (FP) PO SCH (10:09)
[2019-03-12] MEDS: BACITRACIN 0.9 GM PACKET TP SCH ×3 (10:09→22:39)
[2019-03-12] MEDS: diazePAM 5 MG TABLET PO PRN ×3 (10:15→20:48)
[2019-03-12 10:37] LABS: INR 0.87 (0.83-1.09); PROTHROMBIN TIME (PATIENT) 10.3 SEC (9.7-13.0)
[2019-03-12] MEDS: hydrOXYzine PAMOATE 25 MG CAPSULE (FP) PO PRN (12:25)
[2019-03-12] MEDS: NICOTINE POLACRILEX 2 MG GUM BUC PRN ×3 (12:29→20:50)
--- NOTE | 2019-03-12 13:47 | PN ---
[facility] CIWA - CIWA Score Nausea/Vomitin-No Nausea/No Vomiting Muscle Tremors: 1-None Visible, but [place] Anxiety: 1-Mildly Anxious Agitation: 1-Slight > Activity Paroxysmal Sweats: 1-Minimal Palms Moist Orientation: 0-Oriented Tacttile Disturbances: 0-None Auditory Disturbances: 0-None Visual Disturbances: 0-None Headache: 0-None Present CIWA-Ar Total Score: 4 S COWS - Scale Resting Pulse: 0= [place] 80 or Below Sweatin= Chills/Flushing Restless Observation: 0= Sits Still Pupil Size: 0= Normal to Room Light Bone or Joint Aches: 1= Mild Discomfort Runny Nose/ Eye Tearin= Nasal Congestion GI Upset > 30mins: 1= Stomach Cramp Tremor Observation of Outstretched Hands: 0= None Yawning Observation: 0= None Anxiety or Irritability: 1=Feels Anxious/Irritable Goose Flesh Skin: 0=Smooth Skin COWS Score: 5 S Progress Note (SOAP) Subjective: Pt doing well with valium/methadone detox protocol O: Vital Signs - 24 hr 03/11/19 03/11/19 03/11/19 15:21 16:46 21:41 Temperature 98.6 F 97.6 F 98.2 F Pulse Rate 88 90 89 Respiratory 19 19 18 Rate Blood Pressure 156/92 157/92 148/92 03/12/19 03/12/19 03/12/19 03:30 06:58 09:07 Temperature 97.5 F L 98.1 F Pulse Rate 76 79 Respiratory 18 18 18 Rate Blood Pressure 136/63 132/74 03/12/19 13:30 Temperature 98.4 F Pulse Rate 78 Respiratory 19 Rate Blood Pressure 132/74 Laboratory Tests 03/10/19 03/10/19 03/10/19 10:10 10:10 10:10 WBC 5.0 RBC 5.12 Hgb 14.5 Hct 44.6 MCV 87.1 MCH 28.3 MCHC 32.5 RDW 15.0 Plt Count 262 MPV 8.7 PT with INR INR Sodium 138 Potassium 4.5 Chloride 103 Carbon Dioxide 28 Anion Gap 8 BUN 12 Creatinine 1.0 Est GFR (CKD-EPI)AfAm 111.73 Est GFR (CKD-EPI)NonAf 96.40 Random Glucose 79 Calcium 9.2 Total Bilirubin 0.7 AST 102 H ALT 134 H Alkaline Phosphatase 76 Total Protein 8.0 Albumin 3.9 Urine Color Urine Appearance Urine pH Ur Specific [place] Urine Protein Urine Glucose (UA) Urine Ketones Urine Blood Urine Nitrite Urine Bilirubin Urine Urobilinogen Ur Leukocyte Esterase RPR Titer Nonreactive 03/10/19 03/12/19 03/12/19 11:50 07:00 07:00 WBC RBC Hgb Hct MCV MCH MCHC RDW Plt Count MPV PT with INR 10.30 INR 0.87 Sodium Potassium Chloride Carbon Dioxide Anion Gap BUN Creatinine Est GFR (CKD-EPI)AfAm Est GFR (CKD-EPI)NonAf Random Glucose Calcium Total Bilirubin AST 86 H ALT 109 H Alkaline Phosphatase Total Protein Albumin Urine Color Yellow Urine Appearance Clear Urine pH 5.5 Ur Specific [place] 1.022 Urine Protein Negative Urine Glucose (UA) Negative Urine Ketones 1+ H Urine Blood Negative Urine Nitrite Negative Urine Bilirubin Negative Urine Urobilinogen 1.0 Ur Leukocyte Esterase Negative RPR Titer labs and VS WNL a/p: continue valium and methadone detox protocols pt doing well
[2019-03-12] MEDS: MELATONIN 5 MG TABLETS PO PRN (21:52)
[2019-03-12] MEDS: THIAMINE HCL 100 MG TABLET (FP) PO SCH (21:52)
[2019-03-12] MEDS: PRAZOSIN HCL 5 MG CAPSULE PO SCH (21:53)
[2019-03-13] MEDS ORDERED: METHADONE HCL 5 MG TABLET (FOR DETOX USE ONLY) ONE (09:37)
[2019-03-13] MEDS ORDERED: METHADONE HCL 10 MG TABLET (FOR DETOX USE ONLY) ONE (09:37)
[2019-03-13] MEDS ORDERED: METHADONE HCL 10 MG TABLET (FOR DETOX USE ONLY) PO ONE (10:00)
[2019-03-13] MEDS ORDERED: METHADONE (DETOX) 10 MG, METHADONE (DETOX) 5 MG PO ONE (10:00)
[2019-03-13] MEDS: PRENATAL VITAMINS W/ FOLIC ACID TABLET (FP) PO SCH (10:10)
[2019-03-13] MEDS: NICOTINE 21 MG/24 HOURS TOPICAL PATCH TD SCH (10:11)
[2019-03-13] MEDS: BACITRACIN 0.9 GM PACKET TP SCH ×2 (10:11→23:50)
--- NOTE | 2019-03-13 10:12 | PN ---
S COWS - Scale Resting Pulse: 1= [place] 81-100 Sweatin= Beads of Sweat on Face Restless Observation: 1= Difficult to Sit Still Pupil Size: 0= Normal to Room Light Bone or Joint Aches: 4=Acute Joint/Muscle Pain Runny Nose/ Eye Tearin= None GI Upset > 30mins: 0= None Tremor Observation of Outstretched Hands: 1= Tremor [place], Not Seen Yawning Observation: 1= 1-2x During Session Anxiety or Irritability: 0= None Goose Flesh Skin: 0=Smooth Skin COWS Score: 11 S Progress Note (SOAP) Subjective: c/o sweats, body aches, anxiety, and mild tremor. Objective: 03/13/19 10:10 Vital Signs 03/13/19 03/13/19 06:00 09:17 Temperature 96.8 F L 98.4 F Pulse Rate 67 100 H Respiratory 18 18 Rate Blood Pressure 130/77 119/79 Lab Results WBC 5.0 K/mm3 (4.0-10.0) 03/10/19 10:10 RBC 5.12 M/mm3 (4.00-5.60) 03/10/19 10:10 Hgb 14.5 GM/dL (11.7-16.9) 03/10/19 10:10 Hct 44.6 % (35.4-49) 03/10/19 10:10 MCV 87.1 fl (80-96) 03/10/19 10:10 MCHC 32.5 g/dl (32.0-35.9) 03/10/19 10:10 RDW 15.0 % (11.9-15.9) 03/10/19 10:10 Plt Count 262 K/MM3 (134-434) 03/10/19 10:10 Sodium 138 mmol/L (136-145) 03/10/19 10:10 Potassium 4.5 mmol/L (3.5-5.1) 03/10/19 10:10 Chloride 103 mmol/L (98-107) 03/10/19 10:10 Carbon Dioxide 28 mmol/L (21-32) 03/10/19 10:10 Anion Gap 8 MMOL/L (8-16) 03/10/19 10:10 BUN 12 mg/dL (7-18) 03/10/19 10:10 Creatinine 1.0 mg/dL (0.55-1.3) 03/10/19 10:10 Random Glucose 79 mg/dL (74-106) 03/10/19 10:10 Calcium 9.2 mg/dL (8.5-10.1) 03/10/19 10:10 INR 0.87 (0.83-1.09) 03/12/19 07:00 Labs noted. Assessment: 03/13/19 10:10 AOX3, no distress noted full ROM, ambulating in the unit. withdrawal symptoms persists. Plan: continue detox. increase fluids.
[2019-03-13] MEDS: METHOCARBAMOL 500 MG TABLET PO PRN (10:15)
[2019-03-13] MEDS: hydrOXYzine PAMOATE 25 MG CAPSULE (FP) PO PRN ×2 (10:16→17:27)
[2019-03-13] MEDS: NICOTINE POLACRILEX 2 MG GUM BUC PRN ×3 (13:44→20:56)
[2019-03-13] MEDS: THIAMINE HCL 100 MG TABLET (FP) PO SCH (22:05)
[2019-03-13] MEDS: PRAZOSIN HCL 5 MG CAPSULE PO SCH (22:06)
[2019-03-13] MEDS: MELATONIN 5 MG TABLETS PO PRN (22:08)
[2019-03-14] MEDS ORDERED: METHADONE HCL 5 MG TABLET (FOR DETOX USE ONLY) PO ONE (06:00)
[2019-03-14] MEDS ORDERED: METHADONE HCL 10 MG TABLET (FOR DETOX USE ONLY) PO ONE (10:00)
[2019-03-14] MEDS: BACITRACIN 0.9 GM PACKET TP SCH ×2 (10:36→22:15)
[2019-03-14] MEDS: PRENATAL VITAMINS W/ FOLIC ACID TABLET (FP) PO SCH (10:36)
[2019-03-14] MEDS: NICOTINE 21 MG/24 HOURS TOPICAL PATCH TD SCH (10:37)
[2019-03-14] MEDS: METHOCARBAMOL 500 MG TABLET PO PRN ×2 (10:38→18:11)
[2019-03-14] MEDS: hydrOXYzine PAMOATE 25 MG CAPSULE (FP) PO PRN ×2 (13:06→20:08)
[2019-03-14] MEDS: NICOTINE POLACRILEX 2 MG GUM BUC PRN ×3 (13:39→22:15)
--- NOTE | 2019-03-14 13:40 | PN ---
BHS COWS - Scale Resting Pulse: 0= [place] 80 or Below Sweatin= Chills/Flushing Restless Observation: 0= Sits Still Pupil Size: 0= Normal to Room Light Bone or Joint Aches: 2= Severe Diffuse Aches Runny Nose/ Eye Tearin= None GI Upset > 30mins: 0= None Tremor Observation of Outstretched Hands: 2= Slight Tremor Visible Yawning Observation: 0= None Anxiety or Irritability: 0= None Goose Flesh Skin: 0=Smooth Skin COWS Score: 5 BHS Progress Note (SOAP) Subjective: Sweating a lot, interrupted sleep, tremor, chills Objective: 03/14/19 13:36 Last Vital Signs Temp Pulse Resp BP Pulse Ox 98.1 F 76 18 119/78 03/14/19 09:47 03/14/19 09:47 03/14/19 09:47 03/14/19 09:47 Laboratory Tests 03/10/19 03/10/19 03/10/19 10:10 10:10 10:10 WBC 5.0 RBC 5.12 Hgb 14.5 Hct 44.6 MCV 87.1 MCH 28.3 MCHC 32.5 RDW 15.0 Plt Count 262 MPV 8.7 PT with INR INR Sodium 138 Potassium 4.5 Chloride 103 Carbon Dioxide 28 Anion Gap 8 BUN 12 Creatinine 1.0 Est GFR (CKD-EPI)AfAm 111.73 Est GFR (CKD-EPI)NonAf 96.40 Random Glucose 79 Calcium 9.2 Total Bilirubin 0.7 AST 102 H ALT 134 H Alkaline Phosphatase 76 Total Protein 8.0 Albumin 3.9 Urine Color Urine Appearance Urine pH Ur Specific [place] Urine Protein Urine Glucose (UA) Urine Ketones Urine Blood Urine Nitrite Urine Bilirubin Urine Urobilinogen Ur Leukocyte Esterase RPR Titer Nonreactive 03/10/19 03/12/19 03/12/19 11:50 07:00 07:00 WBC RBC Hgb Hct MCV MCH MCHC RDW Plt Count MPV PT with INR 10.30 INR 0.87 Sodium Potassium Chloride Carbon Dioxide Anion Gap BUN Creatinine Est GFR (CKD-EPI)AfAm Est GFR (CKD-EPI)NonAf Random Glucose Calcium Total Bilirubin AST 86 H ALT 109 H Alkaline Phosphatase Total Protein Albumin Urine Color Yellow Urine Appearance Clear Urine pH 5.5 Ur Specific [place] 1.022 Urine Protein Negative Urine Glucose (UA) Negative Urine Ketones 1+ H Urine Blood Negative Urine Nitrite Negative Urine Bilirubin Negative Urine Urobilinogen 1.0 Ur Leukocyte Esterase Negative RPR Titer Labs reviewed Assessment: 03/14/19 13:39 Withdrawal symptoms Plan: Continue detox Encouraged PO water intake Patient scheduled for discharge tomorrow
[2019-03-14] MEDS: diazePAM 5 MG TABLET PO SCH ×2 (18:11→23:20)
--- NOTE | 2019-03-14 21:11 | PN ---
S Progress Note Note: Patient was c/o anxiety unrelieved by current meds. Possible protracted withdrawal symptoms. Plan: Valium 5 mg Q6H x 2 doses. Increase Melatonin to 10 mg PO HS. Encouraged increased water intake.
[2019-03-14] MEDS: PRAZOSIN HCL 5 MG CAPSULE PO SCH (22:15)
[2019-03-14] MEDS: MELATONIN 5 MG TABLETS PO PRN (22:16)
[2019-03-14] MEDS: THIAMINE HCL 100 MG TABLET (FP) PO SCH (22:16)
[2019-03-15] MEDS ORDERED: METHADONE HCL 5 MG TABLET (FOR DETOX USE ONLY) PO ONE (06:00)
[2019-03-15] MEDS: NICOTINE 21 MG/24 HOURS TOPICAL PATCH TD SCH (10:36)
[2019-03-15] MEDS: BACITRACIN 0.9 GM PACKET TP SCH ×2 (10:36→22:07)
[2019-03-15] MEDS: PRENATAL VITAMINS W/ FOLIC ACID TABLET (FP) PO SCH (10:36)
[2019-03-15] MEDS: hydrOXYzine PAMOATE 25 MG CAPSULE (FP) PO PRN ×3 (10:39→22:07)
[2019-03-15] MEDS: METHOCARBAMOL 500 MG TABLET PO PRN (10:39)
[2019-03-15] MEDS: NICOTINE POLACRILEX 2 MG GUM BUC PRN ×3 (12:54→21:01)
--- NOTE | 2019-03-15 14:48 | PN ---
BHS COWS - Scale Resting Pulse: 1= [place] 81-100 Sweatin= No chills or Flushing Restless Observation: 1= Difficult to Sit Still Pupil Size: 0= Normal to Room Light Bone or Joint Aches: 1= Mild Discomfort Runny Nose/ Eye Tearin= None GI Upset > 30mins: 0= None Tremor Observation of Outstretched Hands: 0= None Yawning Observation: 0= None Anxiety or Irritability: 4=Extreme Anxiety Goose Flesh Skin: 0=Smooth Skin COWS Score: 7 BHS Progress Note (SOAP) Subjective: Anxious, Restless, Body Aches. Objective: PATIENT A & O X 3, OBSERVED AMBULATING ON UNIT UNASSISTED. IN NO ACUTE DISTRESS. 03/15/19 14:49 Vital Signs Temperature 97.3 F L 03/15/19 09:25 Pulse Rate 84 03/15/19 09:25 Respiratory Rate 18 03/15/19 09:25 Blood Pressure 105/76 03/15/19 09:25 O2 Sat by Pulse Oximetry (%) Laboratory Tests 03/10/19 03/10/19 03/10/19 10:10 10:10 10:10 WBC 5.0 RBC 5.12 Hgb 14.5 Hct 44.6 MCV 87.1 MCH 28.3 MCHC 32.5 RDW 15.0 Plt Count 262 MPV 8.7 PT with INR INR Sodium 138 Potassium 4.5 Chloride 103 Carbon Dioxide 28 Anion Gap 8 BUN 12 Creatinine 1.0 Est GFR (CKD-EPI)AfAm 111.73 Est GFR (CKD-EPI)NonAf 96.40 Random Glucose 79 Calcium 9.2 Total Bilirubin 0.7 AST 102 H ALT 134 H Alkaline Phosphatase 76 Total Protein 8.0 Albumin 3.9 Urine Color Urine Appearance Urine pH Ur Specific [place] Urine Protein Urine Glucose (UA) Urine Ketones Urine Blood Urine Nitrite Urine Bilirubin Urine Urobilinogen Ur Leukocyte Esterase RPR Titer Nonreactive 03/10/19 03/12/19 03/12/19 11:50 07:00 07:00 WBC RBC Hgb Hct MCV MCH MCHC RDW Plt Count MPV PT with INR 10.30 INR 0.87 Sodium Potassium Chloride Carbon Dioxide Anion Gap BUN Creatinine Est GFR (CKD-EPI)AfAm Est GFR (CKD-EPI)NonAf Random Glucose Calcium Total Bilirubin AST 86 H ALT 109 H Alkaline Phosphatase Total Protein Albumin Urine Color Yellow Urine Appearance Clear Urine pH 5.5 Ur Specific [place] 1.022 Urine Protein Negative Urine Glucose (UA) Negative Urine Ketones 1+ H Urine Blood Negative Urine Nitrite Negative Urine Bilirubin Negative Urine Urobilinogen 1.0 Ur Leukocyte Esterase Negative RPR Titer LABS NOTED. Assessment: 03/15/19 14:49 WITHDRAWAL SYMPTOMS. ELEVATED LIVER ENZYMES. 03/15/19 14:53 Plan: CONTINUE DETOX. PATIENT INITIALLY SCHEDULED FOR DISCHARGE FROM UNIT TODAY AND TO GO ON TO [facility] ([place], [place]) FOR AFTERCARE. HOWEVER , NO BED IS CURRENTLY AVAILABLE AT [facility] AT THIS TIME. DUE TO CONCERN OVER PATIENT RELAPSE, PATIENT TO REMAIN ON DETOX UNIT UNTIL TOMORROW, 03/16/2019, AT WHICH TIME HIS WOOD SCALER WILL APPLY AGAIN FOR HIM TO GO TO [facility] FOR AFTERCARE.
[2019-03-15] MEDS: THIAMINE HCL 100 MG TABLET (FP) PO SCH (22:06)
[2019-03-15] MEDS: PRAZOSIN HCL 5 MG CAPSULE PO SCH (22:07)
[2019-03-15] MEDS: MELATONIN 5 MG TABLETS PO PRN (22:08)
--- NOTE | 2019-03-16 09:03 | DS ---
[facility] Detox Discharge Summary Admission Date: 03/10/19 Discharge Date: 03/16/19 - History Present History: Alcohol Dependence, Cocaine Dependence - Physical Exam Results Vital Signs: Vital Signs Temperature 97.3 F L 03/16/19 07:46 Pulse Rate 70 03/16/19 07:46 Respiratory Rate 18 03/16/19 07:46 Blood Pressure 116/69 03/16/19 07:46 O2 Sat by Pulse Oximetry (%) - Treatment Hospital Course: Detox Protocol Followed, Detoxed Safely, Responded well, Discharged Condition Good, Rehab Referral Accepted - Medication Discharge Medications: Ambulatory Orders Bupropion HCl [Wellbutrin -] 200 mg PO BID 03/10/19 Prazosin HCl 5 mg PO HS 03/10/19 hydrOXYzine PAMOATE [Vistaril -] 150 mg PO DAILY 03/10/19 - Diagnosis (1) Elevated liver enzymes Current Visit: Yes Status: Acute (2) IVDU (intravenous drug user) Current Visit: Yes Status: Chronic (3) Insomnia secondary to depression with anxiety Current Visit: Yes Status: Acute (4) Methamphetamine abuse Current Visit: Yes Status: Chronic (5) Opioid dependence with withdrawal Current Visit: Yes Status: Chronic (6) Substance-induced anxiety disorder Current Visit: Yes Status: Acute (7) Substance-induced sleep disorder Current Visit: Yes Status: Acute (8) ADHD (attention deficit hyperactivity disorder) Current Visit: Yes Status: Chronic Qualifiers: Attention deficit-hyperactivity disorder type: unspecified Qualified Code(s ): F90.9 - Attention-deficit hyperactivity disorder, unspecified type (9) Hepatitis C Current Visit: Yes Status: Chronic Qualifiers: Viral hepatitis chronicity: chronic (10) Nicotine dependence Current Visit: Yes Status: Chronic Qualifiers: Nicotine product type: cigarettes Substance use status: uncomplicated Qualified Code(s): F17.210 - Nicotine dependence, cigarettes, uncomplicated (11) PTSD (post-traumatic stress disorder) Current Visit: Yes Status: Chronic (12) Alcohol dependence with uncomplicated withdrawal Current Visit: Yes Status: Acute (13) Cocaine dependence Current Visit: Yes Status: Acute Qualifiers: Substance use status: uncomplicated Qualified Code(s): F14.20 - Cocaine dependence, uncomplicated (14) Substance induced mood disorder Current Visit: No Status: Acute (15) Post traumatic stress disorder (PTSD) Current Visit: No Status: Chronic - AMA Did Patient Leave Against Medical Advice: No [facility]
[2019-03-16 09:22] VITALS: BP 121/65; PULSE 71; TEMP 98.1
== END 2019-03-16 10:35 | disposition home or self-care (01) | DRG 773 ==
LOC: YASAS 08:13 → Y6N 10:06
PROVIDERS: ADMIT Surgery; ATTEND Surgery
PROC: HZ2ZZZZ Detoxification Services for Substance Abuse Treatment (ICD-10-PCS; principal; 2019-03-10)
DX: F11.23 Opioid dependence with withdrawal (principal); F10.230 Alcohol dependence with withdrawal, uncomplicated; F14.20 Cocaine dependence, uncomplicated; F15.10 Other stimulant abuse, uncomplicated; F17.210 Nicotine dependence, cigarettes, uncomplicated; F19.24 Other psychoactive substance dependence with psychoactive substance-induced mood disorder; F19.280 Other psychoactive substance dependence with psychoactive substance-induced anxiety disorder; F19.282 Other psychoactive substance dependence with psychoactive substance-induced sleep disorder; F90.9 Attention-deficit hyperactivity disorder, unspecified type; F43.10 Post-traumatic stress disorder, unspecified; B18.2 Chronic viral hepatitis C; R94.5 Abnormal results of liver function studies; Z86.14 Personal history of Methicillin resistant Staphylococcus aureus infection
CPT/HCPCS: 36415; 80053; 81003; 84450; 84460; 85027; 85610; 86593; J0735

== ENCOUNTER 2019-09-07 12:13 | Inpatient (IN) | payer OTHER ==
[2019-09-07 13:58] VITALS: BMI 28.3
--- NOTE | 2019-09-07 14:30 | HP ---
"COWS - Scale Resting Pulse: 0= MD 80 or Below Sweatin= Chills/Flushing Restless Observation: 1= Difficult to Sit Still Pupil Size: 0= Normal to Room Light Bone or Joint Aches: 2= Severe Diffuse Aches Runny Nose/ Eye Tearin= Runny Nose/Eyes GI Upset > 30mins: 2= Nausea/Diarrhea Tremor Observation: 0= None Yawning Observation: 0= None Anxiety or Irritability: 2=Irritable/Anxious Goose Flesh Skin: 0=Smooth Skin COWS Score: 10 CIWA Score Nausea/Vomitin Muscle Tremors: None Anxiety: 4-Mod. Anxious/Guarded Agitation: 2 Paroxysmal Sweats: 2 Orientation: 0-Oriented Tacttile Disturbances: 0-None Auditory Disturbances: 0-None Visual Disturbances: 0-None Headache: 0-None Present CIWA-Ar Total Score: 10 - Admission Criteria OASAS Guidelines: Admission for Medically Managed Detox: Requires at least one of the followin. CIWA greater than 12 2. Seizures within the past 24 hours 3. Delirium tremens within the past 24 hours 4. Hallucinations within the past 24 hours 5. Acute intervention needed for co occurring medical disorder 6. Acute intervention needed for co occurring psychiatric disorder 7. Severe withdrawal that cannot be handled at a lower level of care (continued vomiting, continued diarrhea, abnormal vital signs) requiring intravenous medication and/or fluids 8. Admitting History and Physical - Smoking History Smoking history: Current every day smoker Have you smoked in the past 12 months: Yes Aproximately how many cigarettes per day: 20 - Alcohol/Substance Use Hx Alcohol Use: Yes Admission [facility] Allergies/Adverse Reactions: Allergies Allergy/AdvReac Type Severity Reaction Status Date / Time No Known Allergies Allergy Verified 09/07/19 13:48 History of Present Illness: This report was requested by: Shannen Jean | Reference #: [id number] Others' Prescriptions Patient Name: Dioni Snow Date: 1985 Address: [address] [place] [address] Sex: Male Rx Written Rx Dispensed Drug Quantity Days Supply Prescriber Name 05/11/2019 05/11/2019 buprenorphine-naloxone 8-2 mg sl film 30 30 Breana Ragland Patient Name: Dioni Snow Date: 1985 Address: [place] [address] Sex: Male Rx Written Rx Dispensed Drug Quantity Days Supply Prescriber Name 04/08/2019 04/09/2019 suboxone 8 mg-2 mg sl film 30 30 Michelle Olea MD Patient Name: Dioni Snow Date: 1985 Address: [address] [place] [address] Sex: Male Rx Written Rx Dispensed Drug Quantity Days Supply Prescriber Name 04/07/2019 04/08/2019 suboxone 8 mg-2 mg sl film 28 14 Valery Contreras MD patient here requesting detox from etoh and heroin use , reports 2 shots and 2 large drinks , reports drinking alcohol 4-5 x/week , denies seizures, blackouts , falls , tremors, latest use yesterday evening . cannabis since age 10 , etoh since age 11 , cocaine 19, crack cocaine 26 , heroin since age 28 heroin: latest use yesterday, reports 2 bundles/day IV in [facility] , needles from the store, + sharing , + re-using ,+ abscess right arm 2 years ago 2/2 MRSA cocaine: crack 5 d/week , 1-2 gr cannabis- daily use 20-30 $ tobacco : 1.5-2 ppd . pshx : left wrist s/p fall out of window 2015 , r foot ORIF 2/2 football injury 2001 pmhx : hep C (rf=IVDU heroin 1 yr ago ) psych : ADHD , PTSD from childhood trauma, depression unemployed , finances habit through odd jobs legal : denies Exam Limitations: No Limitations - Ebola screening Have you traveled outside of the country in the last 21 days: No Have you had contact with anyone from an Ebola affected area: No Do you have a fever: No - Review of Systems Constitutional: See HPI EENT: reports: See HPI Respiratory: reports: No Symptoms reported Cardiac: reports: No Symptoms Reported GI: reports: Diarrhea, Nausea, Poor Appetite, Abdominal cramping : reports: No Symptoms Reported Musculoskeletal: reports: See HPI Integumentary: reports: See HPI Neuro: reports: No Symptoms reported Endocrine: reports: No Symptoms Reported Psychiatric: reports: Orientated x3, Agitated, Anxious Patient History - Patient Medical History Hx Anemia: No Hx Asthma: No Hx Chronic Obstructive Pulmonary Disease (COPD): No Hx Cancer: No Hx Cardiac Disorders: No Hx Congestive Heart Failure: No Hx Hypertension: No Hx Hypercholesterolemia: No Hx Pacemaker: No HX Cerebrovascular Accident: No Hx Seizures: No Hx Dementia: No Hx Diabetes: No Hx Gastrointestinal Disorders: No Hx Liver Disease: No Hx Genitourinary Disorders: No Hx Sexually Transmitted Disorders: No Hx Renal Disease (ESRD): No Hx Thyroid Disease: No Hx Human Immunodeficiency Virus (HIV): No (last 02/12 negative) Hx Hepatitis C: Yes (no treatment) Hx Depression: Yes Hx Suicide Attempt: No Hx Bipolar Disorder: No Hx Schizophrenia: No - Patient Surgical History Past Surgical History: Yes Hx Neurologic Surgery: No Hx Cataract Extraction: No Hx Cardiac Surgery: No Hx Lung Surgery: No Hx Breast Surgery: No Hx Breast Biopsy: No Hx Abdominal Surgery: No Hx Appendectomy: No Hx Cholecystectomy: No Hx Genitourinary Surgery: No Hx Section: No Hx Orthopedic Surgery: Yes (fx, left wrist and right foot 2017 vasser brother ) Anesthesia Reaction: No - PPD History Date: 09/24/18 Results: 0 mm - Smoking Cessation Smoking history: Current every day smoker Have you smoked in the past 12 months: Yes Aproximately how many cigarettes per day: 20 Hx Chewing Tobacco Use: No Initiated information on smoking cessation: Yes 'Breaking Loose' booklet given: 09/07/19 - Substances abused Crack Substance route: Smoking Frequency: Daily Amount used: 2 gram Age of first use: 26 Date of last use: 09/06/19 Heroin Substance route: Injection Frequency: Daily Amount used: 1 to 2 grams Age of first use: 26 Date of last use: 09/06/19 Other Other (specify): Jenny Substance route: Oral Frequency: 1-2 times per week Amount used: 1 gram Age of first use: 26 Date of last use: 03/08/19 Alcohol Substance route: Oral Frequency: Daily Amount used: 6 packs of 24 ozs of beer Age of first use: 13 Date of last use: 09/06/19 Marijuana/Hashish Substance route: Smoking Frequency: Daily Amount used: $20 Age of first use: 10 Date of last use: 09/06/19 Admission Physical Exam BHS - Vital Signs Vital Signs: Vital Signs - 24 hr 09/07/19 13:45 Temperature 97.5 F L Pulse Rate 77 Respiratory 20 Rate Blood Pressure 147/79 - Physical General Appearance: Yes: Mild Distress, Moderate Distress, Anxious HEENTM: Yes: EOMI, Hearing grossly Normal, Normocephalic, Normal Voice Respiratory: Yes: Chest Non-Tender, Lungs Clear, Normal Breath Sounds, No Respiratory Distress, No Accessory Muscle Use Neck: Yes: No masses,lesions,Nodules, Trachea in good position Cardiology: Yes: Regular Rhythm, Regular Rate, S1, S2 Abdominal: Yes: Non Tender, Soft Back: Yes: Normal Inspection Musculoskeletal: Yes: Gait Steady Extremities: Yes: Normal Range of Motion, Non-Tender Neurological: Yes: Alert, Motor Strength 5/5 Integumentary: Yes: Warm, Track Lynn - Diagnostic (1) Alcohol dependence with uncomplicated withdrawal Current Visit: Yes Status: Chronic (2) Cocaine dependence Current Visit: Yes Status: Chronic Qualifiers: Substance use status: uncomplicated Qualified Code(s): F14.20 - Cocaine dependence, uncomplicated (3) Nicotine dependence Current Visit: Yes Status: Chronic Qualifiers: Nicotine product type: cigarettes Substance use status: uncomplicated Qualified Code(s): F17.210 - Nicotine dependence, cigarettes, uncomplicated (4) Opioid dependence with withdrawal Current Visit: Yes Status: Chronic Breathalyzer - Breathalyzer Breathalyzer: 0 Urine Drug Screen - Test Device Lot number: [id number] Expiration date: 05/26/21 - Control Is test valid?: Yes - Results Drug screen NEGATIVE: No Urine drug screen results: THC-Marijuana, JT-Cocaine, MOP-Opiates Inpatient Rehab Admission - Rehab Decision to Admit Inpatient rehab admission?: No"
[2019-09-07] MEDS ORDERED: BISMUTH SUBSALICYLATE 262 MG/15 ML BTL PO PRN (14:52)
[2019-09-07] MEDS ORDERED: MAGNESIUM HYDROX 2400MG/30ML ORAL SUSPENSION 30 ML CUP PO PRN (14:52)
[2019-09-07] MEDS ORDERED: ACETAMINOPHEN 325 MG TABLET (FP) PO PRN ×2 (14:52)
[2019-09-07] MEDS ORDERED: MAG HYDROX/AL HYDROX/SIMETH 30 ML UNIT-DOSE CUP PO PRN (14:52)
[2019-09-07] MEDS ORDERED: MAGNESIUM CITRATE 300 ML BOTTLE PO PRN (14:52)
[2019-09-07] MEDS ORDERED: IBUPROFEN 400 MG TABLET (FP) PO PRN (14:52)
[2019-09-07] MEDS ORDERED: MENTHOL/PHENOL 1 EACH UD MM PRN (14:52)
[2019-09-07] MEDS ORDERED: MELATONIN 5 MG TABLETS PO PRN (14:52)
[2019-09-07] MEDS ORDERED: METHOCARBAMOL 500 MG TABLET PO PRN (14:52)
[2019-09-07] MEDS ORDERED: hydrOXYzine PAMOATE 25 MG CAPSULE (FP) PO PRN (14:52)
[2019-09-07] MEDS ORDERED: cloNIDine HCL 0.1 MG TABLET PO PRN (14:53)
[2019-09-07] MEDS ORDERED: diazePAM 5 MG TABLET PO ONE (15:35)
[2019-09-07] MEDS ORDERED: METHADONE HCL 10 MG TABLET (FOR DETOX USE ONLY) PO ONE (15:40)
[2019-09-07] MEDS: NICOTINE POLACRILEX 2 MG GUM BUC PRN ×3 (16:04→21:26)
[2019-09-07] MEDS: diazePAM 5 MG TABLET PO SCH (21:25)
[2019-09-07] MEDS ORDERED: THIAMINE HCL 100 MG TABLET (FP) PO SCH (22:00)
[2019-09-08] MEDS: diazePAM 5 MG TABLET PO SCH ×3 (05:23→15:00)
[2019-09-08] MEDS: NICOTINE POLACRILEX 2 MG GUM BUC PRN ×3 (05:24→14:28)
[2019-09-08] MEDS ORDERED: METHADONE HCL 10 MG TABLET (FOR DETOX USE ONLY) ONE (08:16)
[2019-09-08] MEDS ORDERED: METHADONE HCL 5 MG TABLET (FOR DETOX USE ONLY) ONE (08:16)
--- NOTE | 2019-09-08 09:31 | EKG ---
Test Reason : Blood Pressure : / mmHG Vent. Rate : 065 BPM Atrial Rate : 065 BPM P-R Int : 162 ms QRS Dur : 082 ms QT Int : 418 ms P-R-T Axes : 056 072 038 degrees QTc Int : 434 ms NORMAL SINUS RHYTHM NORMAL ECG NO PREVIOUS ECGS AVAILABLE Confirmed by RDAHA WRIGHT, JUMA ([id number]) on 09/08/2019 9:30:47 AM Referred By: Confirmed By:JUMA GARCIA MD
[2019-09-08 09:48] LABS: HEMATOCRIT 43.1 % (35.4-49); HEMOGLOBIN 14.4 GM/dL (11.7-16.9); MCH 28.8 pg (25.7-33.7); MCHC 33.4 g/dl (32.0-35.9); MEAN CELL VOLUME 86.1 fl (80-96); MEAN PLT VOLUME 8.8 fl (7.5-11.1); PLATELET COUNT 248 K/MM3 (134-434); RBC 5.01 M/mm3 (4.00-5.60); RDW 15.2 % (11.9-15.9); WHITE BLOOD COUNT 7.6 K/mm3 (4.0-10.0)
[2019-09-08] MEDS ORDERED: NICOTINE 14 MG/24 HOURS TOPICAL PATCH TD SCH (10:00)
[2019-09-08] MEDS ORDERED: METHADONE (DETOX) 20 MG, METHADONE (DETOX) 5 MG PO ONE (10:00)
[2019-09-08] MEDS ORDERED: PRENATAL VITAMINS W/ FOLIC ACID TABLET (FP) PO SCH (10:00)
[2019-09-08 10:17] LABS: ALBUMIN 3.5 g/dl (3.4-5.0); BILIRUBIN,TOTAL 0.4 mg/dL (0.2-1); BLOOD UREA NITROGEN 13.9 mg/dL (7-18); CALCIUM 8.7 mg/dL (8.5-10.1); POTASSIUM 4.4 mmol/L (3.5-5.1); TOT PROT 6.8 g/dl (6.4-8.2)
[2019-09-08] MEDS: diazePAM 5 MG TABLET PO PRN ×2 (10:26→15:03)
[2019-09-08] MEDS ORDERED: FLU VACCINE QUAD 60 MCG/0.5 ML (MDV 19-20) IM ONE (12:00)
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
--- NOTE | 2019-09-08 13:38 | PN ---
S CIWA - CIWA Score Nausea/Vomitin-Mild Nausea/No Vomiting Muscle Tremors: 3 Anxiety: 3 Agitation: 2 Paroxysmal Sweats: 2 Orientation: 1-Uncertain about Date Tacttile Disturbances: 0-None Auditory Disturbances: 0-None Visual Disturbances: 0-None Headache: 1-Very Mild CIWA-Ar Total Score: 13 BHS COWS - Scale Resting Pulse: 0= [place] 80 or Below Sweatin= Chills/Flushing Restless Observation: 0= Sits Still Pupil Size: 0= Normal to Room Light Bone or Joint Aches: 2= Severe Diffuse Aches Runny Nose/ Eye Tearin= Nasal Congestion GI Upset > 30mins: 1= Stomach Cramp Tremor Observation of Outstretched Hands: 2= Slight Tremor Visible Yawning Observation: 1= 1-2x During Session Anxiety or Irritability: 2=Irritable/Anxious Goose Flesh Skin: 3=Piloerection COWS Score: 13 S Progress Note (SOAP) Subjective: 34 years old male admitted on 09/07/19 for alcohol and opiate withdrawal sx management treated with valium and methadone detox regimen ate breakfast ambulating on hallway social with peers discuss medication assisted treatment program Objective: 09/08/19 13:38 Vital Signs Temperature 96 F L 09/08/19 09:11 Pulse Rate 65 09/08/19 09:11 Respiratory Rate 20 09/08/19 09:11 Blood Pressure 109/59 L 09/08/19 09:11 O2 Sat by Pulse Oximetry (%) Laboratory Last Values WBC 7.6 K/mm3 (4.0-10.0) 09/08/19 07:10 RBC 5.01 M/mm3 (4.00-5.60) 09/08/19 07:10 Hgb 14.4 GM/dL (11.7-16.9) 09/08/19 07:10 Hct 43.1 % (35.4-49) 09/08/19 07:10 MCV 86.1 fl (80-96) 09/08/19 07:10 MCH 28.8 pg (25.7-33.7) 09/08/19 07:10 MCHC 33.4 g/dl (32.0-35.9) 09/08/19 07:10 RDW 15.2 % (11.9-15.9) 09/08/19 07:10 Plt Count 248 K/MM3 (134-434) 09/08/19 07:10 MPV 8.8 fl (7.5-11.1) 09/08/19 07:10 Sodium 138 mmol/L (136-145) 09/08/19 07:10 Potassium 4.4 mmol/L (3.5-5.1) 09/08/19 07:10 Chloride 104 mmol/L (98-107) 09/08/19 07:10 Carbon Dioxide 30 mmol/L (21-32) 09/08/19 07:10 Anion Gap 4 MMOL/L (8-16) L 09/08/19 07:10 BUN 13.9 mg/dL (7-18) 09/08/19 07:10 Creatinine 1.0 mg/dL (0.55-1.3) 09/08/19 07:10 Est GFR (CKD-EPI)AfAm 111.73 09/08/19 07:10 Est GFR (CKD-EPI)NonAf 96.40 09/08/19 07:10 Random Glucose 91 mg/dL (74-106) 09/08/19 07:10 Calcium 8.7 mg/dL (8.5-10.1) 09/08/19 07:10 Total Bilirubin 0.4 mg/dL (0.2-1) 09/08/19 07:10 AST 66 U/L (15-37) H 09/08/19 07:10 ALT 88 U/L (13-61) H 09/08/19 07:10 Alkaline Phosphatase 74 U/L (45-117) 09/08/19 07:10 Total Protein 6.8 g/dl (6.4-8.2) 09/08/19 07:10 Albumin 3.5 g/dl (3.4-5.0) 09/08/19 07:10 RPR Titer Nonreactive (NONREACTIVE) 09/08/19 07:10 lab noted Assessment: 09/08/19 13:38 alcohol and opiate withdrawal sx Plan: continue valium and methadone detox regimen
[2019-09-08 13:46] VITALS: BP 141/80; PULSE 89; TEMP 96.7
--- NOTE | 2019-09-08 16:32 | DS ---
[facility] Detox Discharge Summary Admission Date: 09/07/19 Discharge Date: 09/08/19 - History Present History: Alcohol Dependence, Opioid Dependence Additional Comments: Pt. is requesting to leave AMA. He was encouraged to stay; he did not disclose why he wanted to leave. Educated the client on the risks of leaving detox ama; pt. verbalized understanding. He stated he did not need any medication refills sent to the the pharmacy. He was encouraged to following up with outpatient treatment; pt. verbalized understanding. Pertinent Past History: Last Vital Signs Temp Pulse Resp BP Pulse Ox 96.7 F L 89 18 141/80 09/08/19 13:44 09/08/19 13:44 09/08/19 13:44 09/08/19 13:44 Laboratory Last Values WBC 7.6 K/mm3 (4.0-10.0) 09/08/19 07:10 RBC 5.01 M/mm3 (4.00-5.60) 09/08/19 07:10 Hgb 14.4 GM/dL (11.7-16.9) 09/08/19 07:10 Hct 43.1 % (35.4-49) 09/08/19 07:10 MCV 86.1 fl (80-96) 09/08/19 07:10 MCH 28.8 pg (25.7-33.7) 09/08/19 07:10 MCHC 33.4 g/dl (32.0-35.9) 09/08/19 07:10 RDW 15.2 % (11.9-15.9) 09/08/19 07:10 Plt Count 248 K/MM3 (134-434) 09/08/19 07:10 MPV 8.8 fl (7.5-11.1) 09/08/19 07:10 Sodium 138 mmol/L (136-145) 09/08/19 07:10 Potassium 4.4 mmol/L (3.5-5.1) 09/08/19 07:10 Chloride 104 mmol/L (98-107) 09/08/19 07:10 Carbon Dioxide 30 mmol/L (21-32) 09/08/19 07:10 Anion Gap 4 MMOL/L (8-16) L 09/08/19 07:10 BUN 13.9 mg/dL (7-18) 09/08/19 07:10 Creatinine 1.0 mg/dL (0.55-1.3) 09/08/19 07:10 Est GFR (CKD-EPI)AfAm 111.73 09/08/19 07:10 Est GFR (CKD-EPI)NonAf 96.40 09/08/19 07:10 Random Glucose 91 mg/dL (74-106) 09/08/19 07:10 Calcium 8.7 mg/dL (8.5-10.1) 09/08/19 07:10 Total Bilirubin 0.4 mg/dL (0.2-1) 09/08/19 07:10 AST 66 U/L (15-37) H 09/08/19 07:10 ALT 88 U/L (13-61) H 09/08/19 07:10 Alkaline Phosphatase 74 U/L (45-117) 09/08/19 07:10 Total Protein 6.8 g/dl (6.4-8.2) 09/08/19 07:10 Albumin 3.5 g/dl (3.4-5.0) 09/08/19 07:10 RPR Titer Nonreactive (NONREACTIVE) 09/08/19 07:10 labs reviewed - Physical Exam Results Vital Signs: Vital Signs Temperature 96.7 F L 09/08/19 13:44 Pulse Rate 89 09/08/19 13:44 Respiratory Rate 18 09/08/19 13:44 Blood Pressure 141/80 09/08/19 13:44 O2 Sat by Pulse Oximetry (%) - Medication Discharge Medications: Ambulatory Orders Bupropion HCl [Wellbutrin Xl -] 150 mg PO BID 09/07/19 Prazosin HCl 5 mg PO HS 09/07/19 hydrOXYzine PAMOATE [Vistaril -] 100 mg PO BID 09/07/19 Naloxone HCl [Narcan] 4 mg NS ASDIR PRN #1 spray 09/08/19 - Diagnosis (1) Alcohol dependence with uncomplicated withdrawal Current Visit: Yes Status: Chronic (2) Opioid dependence with withdrawal Current Visit: Yes Status: Chronic (3) Nicotine dependence Current Visit: Yes Status: Chronic Qualifiers: Nicotine product type: cigarettes Substance use status: uncomplicated Qualified Code(s): F17.210 - Nicotine dependence, cigarettes, uncomplicated (4) IVDU (intravenous drug user) Current Visit: Yes Status: Chronic (5) Methamphetamine abuse Current Visit: Yes Status: Chronic - AMA Did Patient Leave Against Medical Advice: Yes
[2019-09-08] MEDS ORDERED: QUEtiapine FUMARATE 100 MG TABLET (FP) PO SCH (22:00)
[2019-09-09] MEDS ORDERED: diazePAM 5 MG TABLET PO SCH (06:00)
[2019-09-09] MEDS ORDERED: METHADONE HCL 10 MG TABLET (FOR DETOX USE ONLY) PO ONE (10:00)
[2019-09-10] MEDS ORDERED: diazePAM 5 MG TABLET PO ONE (06:00)
[2019-09-10] MEDS ORDERED: METHADONE (DETOX) 10 MG, METHADONE (DETOX) 5 MG PO ONE (10:00)
[2019-09-11] MEDS ORDERED: METHADONE HCL 10 MG TABLET (FOR DETOX USE ONLY) PO ONE (10:00)
[2019-09-12] MEDS ORDERED: METHADONE HCL 5 MG TABLET (FOR DETOX USE ONLY) PO ONE (06:00)
== END 2019-09-08 17:45 | disposition left against medical advice (07) | DRG 770 ==
LOC: YASAS 12:13 → Y3N 15:33
PROVIDERS: ADMIT Allergy & Immunology; ATTEND Allergy & Immunology
PROC: HZ2ZZZZ Detoxification Services for Substance Abuse Treatment (ICD-10-PCS; principal; 2019-09-07)
DX: F11.23 Opioid dependence with withdrawal (principal); F10.230 Alcohol dependence with withdrawal, uncomplicated; F14.20 Cocaine dependence, uncomplicated; F12.20 Cannabis dependence, uncomplicated; F15.10 Other stimulant abuse, uncomplicated; F17.210 Nicotine dependence, cigarettes, uncomplicated; F43.10 Post-traumatic stress disorder, unspecified; G47.00 Insomnia, unspecified; Z86.14 Personal history of Methicillin resistant Staphylococcus aureus infection; Z91.19 Patient's noncompliance with other medical treatment and regimen; Z62.810 Personal history of physical and sexual abuse in childhood; Z56.0 Unemployment, unspecified
CPT/HCPCS: 36415; 80053; 85027; 86593; 93005; 93010; Q2036

== ENCOUNTER 2019-10-11 12:26 | Inpatient (IN) | payer OTHER ==
[2019-10-11 12:43] VITALS: BMI 28.1
--- NOTE | 2019-10-11 14:07 | HP ---
COWS - Scale Resting Pulse: 0= [place] 80 or Below Sweatin= Chills/Flushing Restless Observation: 1= Difficult to Sit Still Pupil Size: 1= Pupils >than Normal Bone or Joint Aches: 2= Severe Diffuse Aches Runny Nose/ Eye Tearin= Runny Nose/Eyes GI Upset > 30mins: 1= Stomach Cramp Tremor Observation: 2= Slight Tremor Visible Yawning Observation: 1= 1-2x During Session Anxiety or Irritability: 2=Irritable/Anxious Goose Flesh Skin: 0=Smooth Skin COWS Score: 13 CIWA Score Nausea/Vomitin-Mild Nausea/No Vomiting Muscle Tremors: 2 Anxiety: 3 Agitation: 3 Paroxysmal Sweats: 1-Minimal Palms Moist Orientation: 0-Oriented Tacttile Disturbances: 1-Very Mild Itch/Numbness Auditory Disturbances: 0-None Visual Disturbances: 0-None Headache: 2-Mild CIWA-Ar Total Score: 13 - Admission Criteria OASAS Guidelines: Admission for Medically Managed Detox: Requires at least one of the followin. CIWA greater than 12 2. Seizures within the past 24 hours 3. Delirium tremens within the past 24 hours 4. Hallucinations within the past 24 hours 5. Acute intervention needed for co occurring medical disorder 6. Acute intervention needed for co occurring psychiatric disorder 7. Severe withdrawal that cannot be handled at a lower level of care (continued vomiting, continued diarrhea, abnormal vital signs) requiring intravenous medication and/or fluids 8. Admitting History and Physical - Admission Chief Complaint: need help to stop using heroin, cocaine, alcohol and weed History of Present Illness: 34 yo m w/ PMH PTSD, depresion, ADHD, Hep C (not treated), nicotine dependence and polysubstance abuse who comes into [facility] for assistance with detoxification from multiple substances. The patient endorses using approx. 1/2 pint of vodka and 88 oz of beer 5 days per week Alcohol. His last use was at approx. 4pm yesterday. The patient also endorses using approx. 10-15 bags of heroin intravenously daily with his last use being yesterday. He also uses approx $100 of crack daily with his last use being yesterday. Patient smokes approx $80 of marijuana daily with last use being yesterday. Patient endorses a history of untreated Hep C as well as AHDH, Depression and PTSD in the past. He was previously on Wellbutrin, Vistaril and Prazosin for these conditions, but has not taken his medications in approx. 2 months. He does not follow with a doctor regularly. Patient denies seizure, blackouts or severe withdrawals requiring hospitalization. He was recently admitted to [facility] for detox from alcohol, cocaine and heroin from 09/07/19 -09/08/19. He left AMA at that time and did not complete detox. He was admitted to [facility] approx. 3 times in the past. History Source: Patient Limitations to Obtaining History: No Limitations - Past Medical History Hepatobiliary: Yes: Hepatitis C Psych: Yes: Addictions, Depression, Other (adhd, PTSD) - Past Surgical History Additional Past Surgical History: orthopedic surgery - Smoking History Smoking history: Current every day smoker Have you smoked in the past 12 months: Yes Aproximately how many cigarettes per day: 20 - Alcohol/Substance Use Hx Alcohol Use: Yes History of Substance Use: reports: Cocaine, Heroin, Marijuana - Social History Usual Living Arrangement: Yes: Alone Do you think of yourself as: Straight/Heterosexual ADL: Independent History of Recent Travel: No Admission ROS [facility] - [facility] Allergies/Adverse Reactions: Allergies Allergy/AdvReac Type Severity Reaction Status Date / Time No Known Allergies Allergy Verified 10/11/19 12:37 - Ebola screening Have you traveled outside of the country in the last 21 days: No (N) Have you had contact with anyone from an Ebola affected area: No Do you have a fever: No - Review of Systems Constitutional: Chills Respiratory: reports: No Symptoms reported Cardiac: reports: No Symptoms Reported GI: reports: Nausea : reports: No Symptoms Reported Musculoskeletal: reports: Joint Pain, Muscle Pain Integumentary: reports: No Symptoms Reported Neuro: reports: Headache Psychiatric: reports: No Sypmtoms Reported Patient History - Patient Medical History Hx Anemia: No Hx Asthma: No Hx Chronic Obstructive Pulmonary Disease (COPD): No Hx Cancer: No Hx Cardiac Disorders: No Hx Congestive Heart Failure: No Hx Hypertension: No Hx Hypercholesterolemia: No Hx Pacemaker: No HX Cerebrovascular Accident: No Hx Seizures: No Hx Dementia: No Hx Diabetes: No Hx Gastrointestinal Disorders: No Hx Liver Disease: No Hx Genitourinary Disorders: No Hx Sexually Transmitted Disorders: No Hx Renal Disease (ESRD): No Hx Thyroid Disease: No Hx Human Immunodeficiency Virus (HIV): No (last 02/12 negative) Hx Hepatitis C: Yes (no treatment) Hx Depression: Yes Hx Suicide Attempt: No Hx Bipolar Disorder: No Hx Schizophrenia: No - Patient Surgical History Past Surgical History: Yes Hx Neurologic Surgery: No Hx Cataract Extraction: No Hx Cardiac Surgery: No Hx Lung Surgery: No Hx Breast Surgery: No Hx Breast Biopsy: No Hx Abdominal Surgery: No Hx Appendectomy: No Hx Cholecystectomy: No Hx Genitourinary Surgery: No Hx Section: No Hx Orthopedic Surgery: Yes (fx, left wrist and right foot 2017 vasser brother ) Anesthesia Reaction: No - PPD History Previous Implant?: Yes Documented Results: Negative w/o proof Implanted On Prior R Admission?: Yes Date: 09/24/18 Results: 0 mm PPD to be Administered?: Yes - Smoking Cessation Smoking history: Current every day smoker Have you smoked in the past 12 months: Yes Aproximately how many cigarettes per day: 40 Hx Chewing Tobacco Use: No Initiated information on smoking cessation: Yes 'Breaking Loose' booklet given: 10/11/19 - Substances abused Crack Substance route: Smoking Frequency: Daily Amount used: 2 gram Age of first use: 26 Date of last use: 10/10/19 Heroin Substance route: Injection Frequency: Daily Amount used: 1-1/2 grams Age of first use: 26 Date of last use: 10/10/19 Other Other (specify): Jenny Substance route: Oral Frequency: 1-2 times per week Amount used: 1 gram Age of first use: 26 Date of last use: 03/08/19 Alcohol Substance route: Oral Frequency: Daily Amount used: 5 of 22 ozs of beers and 1/2 pint liquor (vodka) Age of first use: 13 Date of last use: 10/10/19 Marijuana/Hashish Substance route: Smoking Frequency: Daily Amount used: 3 grams Age of first use: 10 Date of last use: 10/10/19 Admission Physical Exam BHS - Vital Signs Vital Signs: Vital Signs - 24 hr 10/11/19 10/11/19 12:39 13:08 Temperature 97.9 F 97.9 F Pulse Rate 75 75 Respiratory 18 18 Rate Blood Pressure 157/87 157/87 - Physical General Appearance: Yes: Mild Distress HEENTM: Yes: EOMI, Normocephalic, Nasal Congestion Respiratory: Yes: Chest Non-Tender, Lungs Clear, Normal Breath Sounds Neck: Yes: Within Normal Limits, No masses,lesions,Nodules, Supple, Trachea in good position Cardiology: Yes: Regular Rhythm, Regular Rate, S1, S2. No: Bradycardia Abdominal: Yes: Normal Bowel Sounds Genitourinary: Yes: Within Normal Limits Back: Yes: Muscle Spasm Musculoskeletal: Yes: Back pain, Muscle Pain Extremities: Yes: Tremors Neurological: Yes: rehabilitation assistant II-XII NML intact, Fully Oriented, Alert, Motor Strength 5/5, Normal Mood/Affect Integumentary: Yes: Dry Lymphatic: Yes: Within Normal Limits - Diagnostic (1) Opioid dependence with withdrawal Current Visit: Yes Status: Acute (2) Depression Current Visit: Yes Status: Acute (3) ADHD (attention deficit hyperactivity disorder) Current Visit: No Status: Chronic Qualifiers: Attention deficit-hyperactivity disorder type: unspecified Qualified Code(s ): F90.9 - Attention-deficit hyperactivity disorder, unspecified type (4) Alcohol dependence with uncomplicated withdrawal Current Visit: No Status: Chronic (5) Cannabis dependence Current Visit: No Status: Chronic (6) Cocaine dependence Current Visit: No Status: Chronic Qualifiers: Substance use status: uncomplicated Qualified Code(s): F14.20 - Cocaine dependence, uncomplicated (7) Hepatitis C Current Visit: No Status: Chronic Qualifiers: Viral hepatitis chronicity: chronic (8) IVDU (intravenous drug user) Current Visit: No Status: Chronic (9) Nicotine dependence Current Visit: No Status: Chronic Qualifiers: Nicotine product type: cigarettes Substance use status: uncomplicated Qualified Code(s): F17.210 - Nicotine dependence, cigarettes, uncomplicated (10) PTSD (post-traumatic stress disorder) Current Visit: No Status: Chronic Cleared for Admission S - Detox or Rehab [facility] Level of Care: Medically Managed Detox Regimen/Protocol: Methadone/Valium Breathalyzer - Breathalyzer Breathalyzer: 0 Urine Drug Screen - Test Device Lot number: [id number] Expiration date: 05/26/21 - Control Is test valid?: Yes - Results Drug screen NEGATIVE: No Urine drug screen results: THC-Marijuana, JT-Cocaine, FEN-Fentanyl Inpatient Rehab Admission - Rehab Decision to Admit Inpatient rehab admission?: No
[2019-10-11] MEDS ORDERED: MENTHOL/PHENOL 1 EACH UD MM PRN (14:23)
[2019-10-11] MEDS ORDERED: BISMUTH SUBSALICYLATE 262 MG/15 ML BTL PO PRN (14:23)
[2019-10-11] MEDS ORDERED: IBUPROFEN 400 MG TABLET (FP) PO PRN (14:23)
[2019-10-11] MEDS ORDERED: cloNIDine HCL 0.1 MG TABLET PO PRN (14:23)
[2019-10-11] MEDS ORDERED: MAGNESIUM CITRATE 300 ML BOTTLE PO PRN (14:23)
[2019-10-11] MEDS ORDERED: MAGNESIUM HYDROX 2400MG/30ML ORAL SUSPENSION 30 ML CUP PO PRN (14:23)
[2019-10-11] MEDS ORDERED: ACETAMINOPHEN 325 MG TABLET (FP) PO PRN ×2 (14:23)
[2019-10-11] MEDS ORDERED: MAG HYDROX/AL HYDROX/SIMETH 30 ML UNIT-DOSE CUP PO PRN (14:23)
--- NOTE | 2019-10-11 15:06 | PN ---
Teaching Attending Note Name of Resident: Andrade Fair ATTENDING PHYSICIAN STATEMENT I saw and evaluated the patient. I reviewed the resident's note and discussed the case with the resident. I agree with the resident's findings and plan as documented. this 34 years old male with heroin dependence,iv,alcohol,cocaine and marijuana dependence seeking detox,non compliance,hepatitis c SUBJECTIVE: withdrawal signs and symptom OBJECTIVE: Vital Signs Temperature 97.9 F 10/11/19 13:08 Pulse Rate 75 10/11/19 13:08 Respiratory Rate 18 10/11/19 13:08 Blood Pressure 157/87 10/11/19 13:08 O2 Sat by Pulse Oximetry (%) ASSESSMENT AND PLAN:for inpatient detox methadone and valium regimen
[2019-10-11] MEDS ORDERED: METHADONE HCL 10 MG TABLET (FOR DETOX USE ONLY) PO ONE (15:10)
[2019-10-11] MEDS: NICOTINE 21 MG/24 HOURS TOPICAL PATCH TD SCH (15:33)
[2019-10-11] MEDS: NICOTINE POLACRILEX 4 MG GUM BUC PRN (15:34)
[2019-10-11 16:44] LABS: HEMATOCRIT 45.3 % (35.4-49); MCHC 33.1 g/dl (32.0-35.9); MEAN CELL VOLUME 87.7 fl (80-96); MEAN PLT VOLUME 8.4 fl (7.5-11.1); PLATELET COUNT 288 K/MM3 (134-434); RBC 5.16 M/mm3 (4.00-5.60); RDW 15.1 % (11.9-15.9); WHITE BLOOD COUNT 6.1 K/mm3 (4.0-10.0)
[2019-10-11 16:58] LABS: BILIRUBIN,TOTAL 0.6 mg/dL (0.2-1); BLOOD UREA NITROGEN 17.8 mg/dL (7-18); CALCIUM 9.1 mg/dL (8.5-10.1); CREATININE 1.1 mg/dL (0.55-1.3); POTASSIUM 4.7 mmol/L (3.5-5.1); TOT PROT 8.1 g/dl (6.4-8.2)
[2019-10-11] MEDS: diazePAM 5 MG TABLET PO SCH (21:25)
[2019-10-11] MEDS: THIAMINE HCL 100 MG TABLET (FP) PO SCH (21:25)
[2019-10-12] MEDS: MELATONIN 5 MG TABLETS PO PRN ×2 (00:25→22:04)
[2019-10-12] MEDS: diazePAM 5 MG TABLET PO PRN ×2 (01:38→10:19)
[2019-10-12] MEDS: diazePAM 5 MG TABLET PO SCH ×3 (06:02→22:03)
[2019-10-12] MEDS: NICOTINE POLACRILEX 4 MG GUM BUC PRN ×3 (06:04→22:06)
[2019-10-12] MEDS ORDERED: METHADONE HCL 5 MG TABLET (FOR DETOX USE ONLY) ONE (09:23)
[2019-10-12] MEDS ORDERED: METHADONE HCL 10 MG TABLET (FOR DETOX USE ONLY) ONE (09:23)
--- NOTE | 2019-10-12 09:49 | EKG ---
Test Reason : Blood Pressure : / mmHG Vent. Rate : 065 BPM Atrial Rate : 065 BPM P-R Int : 146 ms QRS Dur : 082 ms QT Int : 418 ms P-R-T Axes : 057 077 046 degrees QTc Int : 434 ms NORMAL SINUS RHYTHM NORMAL ECG WHEN COMPARED WITH ECG OF 07-SEP-2019 16:12, NO SIGNIFICANT CHANGE WAS FOUND Confirmed by MD Darryn, Bob ([id number]) on 10/12/2019 9:49:21 AM Referred By: GAYLA Confirmed By:Bob Cates MD
[2019-10-12 09:58] LABS: PH,URINE 7.5 (5.0-8.0); URINE APPEARANCE CLEAR; URINE BILIRUBIN NEGATIVE (NEGATIVE); URINE COLOR YELLOW; URINE GLUCOSE (UA) NEGATIVE (NEGATIVE); URINE KETONE NEGATIVE (NEGATIVE); URINE LEUK ESTERASE NEGATIVE (NEGATIVE); URINE NITRITE NEGATIVE (NEGATIVE); URINE PROTEIN NEGATIVE (NEGATIVE); URINE UROBILINOGEN 0.2 mg/dL (0.2-1.0)
[2019-10-12] MEDS ORDERED: METHADONE (DETOX) 20 MG, METHADONE (DETOX) 5 MG PO ONE (10:00)
[2019-10-12] MEDS: PRENATAL VITAMINS W/ FOLIC ACID TABLET (FP) PO SCH (10:19)
[2019-10-12] MEDS: NICOTINE 21 MG/24 HOURS TOPICAL PATCH TD SCH (10:19)
--- NOTE | 2019-10-12 10:56 | PN ---
[facility] CIWA - CIWA Score Nausea/Vomitin-No Nausea/No Vomiting Muscle Tremors: 4-Moderate,w/Arms Extend Anxiety: 4-Mod. Anxious/Guarded Agitation: 3 Paroxysmal Sweats: 3 Orientation: 0-Oriented Tacttile Disturbances: 0-None Auditory Disturbances: 0-None Visual Disturbances: 0-None Headache: 0-None Present CIWA-Ar Total Score: 14 BHS COWS - Scale Resting Pulse: 1= [place] 81-100 Sweatin= Chills/Flushing Restless Observation: 1= Difficult to Sit Still Pupil Size: 0= Normal to Room Light Bone or Joint Aches: 2= Severe Diffuse Aches Runny Nose/ Eye Tearin= Runny Nose/Eyes GI Upset > 30mins: 0= None Tremor Observation of Outstretched Hands: 2= Slight Tremor Visible Yawning Observation: 2= >3x During Session Anxiety or Irritability: 2=Irritable/Anxious Goose Flesh Skin: 0=Smooth Skin COWS Score: 13 S Progress Note (SOAP) Subjective: sweats shakes interrupted sleep body aches irritable insomnia Objective: 10/12/19 10:55 Vital Signs Temperature 97.9 F 10/12/19 09:34 Pulse Rate 91 H 10/12/19 09:34 Respiratory Rate 18 10/12/19 09:34 Blood Pressure 143/84 10/12/19 09:34 O2 Sat by Pulse Oximetry (%) Laboratory Tests 10/11/19 10/11/19 10/11/19 14:15 14:15 14:15 WBC 6.1 RBC 5.16 Hgb 15.0 Hct 45.3 MCV 87.7 MCH 29.0 MCHC 33.1 RDW 15.1 Plt Count 288 MPV 8.4 Sodium 137 Potassium 4.7 Chloride 102 Carbon Dioxide 29 Anion Gap 6 L BUN 17.8 Creatinine 1.1 Est GFR (CKD-EPI)AfAm 99.57 Est GFR (CKD-EPI)NonAf 85.91 Random Glucose 81 Calcium 9.1 Total Bilirubin 0.6 AST 75 H ALT 81 H Alkaline Phosphatase 73 Total Protein 8.1 Albumin 4.0 Urine Color Urine Appearance Urine pH Ur Specific [place] Urine Protein Urine Glucose (UA) Urine Ketones Urine Blood Urine Nitrite Urine Bilirubin Urine Urobilinogen Ur Leukocyte Esterase RPR Titer Nonreactive HIV 1&2 Antibody Screen HIV P24 Antigen 10/11/19 10/12/19 14:15 08:00 WBC RBC Hgb Hct MCV MCH MCHC RDW Plt Count MPV Sodium Potassium Chloride Carbon Dioxide Anion Gap BUN Creatinine Est GFR (CKD-EPI)AfAm Est GFR (CKD-EPI)NonAf Random Glucose Calcium Total Bilirubin AST ALT Alkaline Phosphatase Total Protein Albumin Urine Color Yellow Urine Appearance Clear Urine pH 7.5 D Ur Specific [place] 1.012 Urine Protein Negative Urine Glucose (UA) Negative Urine Ketones Negative Urine Blood Negative Urine Nitrite Negative Urine Bilirubin Negative Urine Urobilinogen 0.2 Ur Leukocyte Esterase Negative RPR Titer HIV 1&2 Antibody Screen Negative HIV P24 Antigen Negative aaox3 ambulating no acute distress Assessment: 10/12/19 10:55 withdrawals Plan: continue detox increase fluids trazadone 50mg qhs
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
[2019-10-12] MEDS: THIAMINE HCL 100 MG TABLET (FP) PO SCH (22:04)
[2019-10-12] MEDS: traZODone HCL 50 MG TABLET (FP) PO SCH (22:04)
[2019-10-13] MEDS: diazePAM 5 MG TABLET PO SCH ×2 (05:56→17:18)
[2019-10-13] MEDS: NICOTINE POLACRILEX 4 MG GUM BUC PRN ×4 (05:57→21:04)
[2019-10-13] MEDS ORDERED: METHADONE HCL 10 MG TABLET (FOR DETOX USE ONLY) PO ONE (10:00)
[2019-10-13] MEDS: PRENATAL VITAMINS W/ FOLIC ACID TABLET (FP) PO SCH (10:18)
[2019-10-13] MEDS: NICOTINE 21 MG/24 HOURS TOPICAL PATCH TD SCH (10:18)
--- NOTE | 2019-10-13 10:56 | PN ---
[facility] CIWA - CIWA Score Nausea/Vomitin-No Nausea/No Vomiting Muscle Tremors: 3 Anxiety: 3 Agitation: 2 Paroxysmal Sweats: 2 Orientation: 0-Oriented Tacttile Disturbances: 0-None Auditory Disturbances: 0-None Visual Disturbances: 0-None Headache: 0-None Present CIWA-Ar Total Score: 10 BHS COWS - Scale Resting Pulse: 0= [place] 80 or Below Sweatin= Chills/Flushing Restless Observation: 1= Difficult to Sit Still Pupil Size: 0= Normal to Room Light Bone or Joint Aches: 1= Mild Discomfort Runny Nose/ Eye Tearin= None GI Upset > 30mins: 0= None Tremor Observation of Outstretched Hands: 1= Tremor [place], Not Seen Yawning Observation: 1= 1-2x During Session Anxiety or Irritability: 1=Feels Anxious/Irritable Goose Flesh Skin: 0=Smooth Skin COWS Score: 6 S Progress Note (SOAP) Subjective: sweats mild shakes tired the trazadone help so much Objective: 10/13/19 10:55 Vital Signs Temperature 97.5 F L 10/13/19 05:00 Pulse Rate 72 10/13/19 05:00 Respiratory Rate 18 10/13/19 05:00 Blood Pressure 116/75 10/13/19 05:00 O2 Sat by Pulse Oximetry (%) Laboratory Tests 10/11/19 10/11/19 10/11/19 14:15 14:15 14:15 WBC 6.1 RBC 5.16 Hgb 15.0 Hct 45.3 MCV 87.7 MCH 29.0 MCHC 33.1 RDW 15.1 Plt Count 288 MPV 8.4 Sodium 137 Potassium 4.7 Chloride 102 Carbon Dioxide 29 Anion Gap 6 L BUN 17.8 Creatinine 1.1 Est GFR (CKD-EPI)AfAm 99.57 Est GFR (CKD-EPI)NonAf 85.91 Random Glucose 81 Calcium 9.1 Total Bilirubin 0.6 AST 75 H ALT 81 H Alkaline Phosphatase 73 Total Protein 8.1 Albumin 4.0 Urine Color Urine Appearance Urine pH Ur Specific [place] Urine Protein Urine Glucose (UA) Urine Ketones Urine Blood Urine Nitrite Urine Bilirubin Urine Urobilinogen Ur Leukocyte Esterase RPR Titer Nonreactive HIV 1&2 Antibody Screen HIV P24 Antigen 10/11/19 10/12/19 14:15 08:00 WBC RBC Hgb Hct MCV MCH MCHC RDW Plt Count MPV Sodium Potassium Chloride Carbon Dioxide Anion Gap BUN Creatinine Est GFR (CKD-EPI)AfAm Est GFR (CKD-EPI)NonAf Random Glucose Calcium Total Bilirubin AST ALT Alkaline Phosphatase Total Protein Albumin Urine Color Yellow Urine Appearance Clear Urine pH 7.5 D Ur Specific [place] 1.012 Urine Protein Negative Urine Glucose (UA) Negative Urine Ketones Negative Urine Blood Negative Urine Nitrite Negative Urine Bilirubin Negative Urine Urobilinogen 0.2 Ur Leukocyte Esterase Negative RPR Titer HIV 1&2 Antibody Screen Negative HIV P24 Antigen Negative aaox3 ambulating no acute distress labs noted Assessment: 10/13/19 10:55 withdrawals Plan: continue detox increase fluids
[2019-10-13] MEDS: diazePAM 5 MG TABLET PO PRN ×2 (15:00→22:27)
[2019-10-13] MEDS: traZODone HCL 50 MG TABLET (FP) PO SCH (21:55)
[2019-10-13] MEDS: THIAMINE HCL 100 MG TABLET (FP) PO SCH (22:25)
[2019-10-14] MEDS ORDERED: diazePAM 5 MG TABLET PO ONE (06:00)
[2019-10-14] MEDS: NICOTINE POLACRILEX 4 MG GUM BUC PRN ×4 (06:03→22:06)
[2019-10-14] MEDS ORDERED: METHADONE HCL 5 MG TABLET (FOR DETOX USE ONLY) ONE (09:52)
[2019-10-14] MEDS ORDERED: METHADONE HCL 10 MG TABLET (FOR DETOX USE ONLY) ONE (09:52)
[2019-10-14] MEDS: NICOTINE 21 MG/24 HOURS TOPICAL PATCH TD SCH (09:56)
[2019-10-14] MEDS ORDERED: METHADONE (DETOX) 10 MG, METHADONE (DETOX) 5 MG PO ONE (10:00)
--- NOTE | 2019-10-14 11:24 | PN ---
[facility] CIWA - CIWA Score Nausea/Vomitin-No Nausea/No Vomiting Muscle Tremors: 3 Anxiety: 2 Agitation: 2 Paroxysmal Sweats: 2 Orientation: 0-Oriented Tacttile Disturbances: 0-None Auditory Disturbances: 0-None Visual Disturbances: 0-None Headache: 0-None Present CIWA-Ar Total Score: 9 [facility] COWS - Scale Resting Pulse: 0= [place] 80 or Below Sweatin= Chills/Flushing Restless Observation: 1= Difficult to Sit Still Pupil Size: 0= Normal to Room Light Bone or Joint Aches: 0= None Runny Nose/ Eye Tearin= None GI Upset > 30mins: 0= None Tremor Observation of Outstretched Hands: 1= Tremor [place], Not Seen Yawning Observation: 0= None Anxiety or Irritability: 2=Irritable/Anxious Goose Flesh Skin: 0=Smooth Skin COWS Score: 5 [facility] Progress Note (SOAP) Subjective: sweats anxiety restless Objective: 10/14/19 11:24 Vital Signs Temperature 98.8 F 10/14/19 09:53 Pulse Rate 77 10/14/19 09:53 Respiratory Rate 18 10/14/19 09:53 Blood Pressure 138/69 10/14/19 09:53 O2 Sat by Pulse Oximetry (%) aaox3 ambulating no acute distress Assessment: 10/14/19 11:24 withdrawals Plan: continue detox
[2019-10-14] MEDS: PRENATAL VITAMINS W/ FOLIC ACID TABLET (FP) PO SCH (11:56)
[2019-10-14] MEDS: diazePAM 5 MG TABLET PO PRN (14:13)
[2019-10-14] MEDS: hydrOXYzine PAMOATE 25 MG CAPSULE (FP) PO PRN (16:57)
[2019-10-14] MEDS: METHOCARBAMOL 500 MG TABLET PO PRN (18:51)
[2019-10-14] MEDS: THIAMINE HCL 100 MG TABLET (FP) PO SCH (22:05)
[2019-10-14] MEDS: traZODone HCL 50 MG TABLET (FP) PO SCH (22:05)
[2019-10-15] MEDS ORDERED: METHADONE HCL 10 MG TABLET (FOR DETOX USE ONLY) PO ONE (10:00)
[2019-10-15] MEDS: PRENATAL VITAMINS W/ FOLIC ACID TABLET (FP) PO SCH (10:51)
[2019-10-15] MEDS: NICOTINE 21 MG/24 HOURS TOPICAL PATCH TD SCH (10:51)
--- NOTE | 2019-10-15 13:38 | PN ---
[facility] CIWA - CIWA Score Nausea/Vomitin-No Nausea/No Vomiting Muscle Tremors: 2 Anxiety: 1-Mildly Anxious Agitation: 0-Normal Activity Paroxysmal Sweats: No Perspiration Orientation: 0-Oriented Tacttile Disturbances: 0-None Auditory Disturbances: 0-None Visual Disturbances: 0-None Headache: 0-None Present CIWA-Ar Total Score: 3 BHS COWS - Scale Resting Pulse: 2= [place] 101-120 Sweatin= Chills/Flushing Restless Observation: 0= Sits Still Pupil Size: 0= Normal to Room Light Bone or Joint Aches: 1= Mild Discomfort Runny Nose/ Eye Tearin= None GI Upset > 30mins: 0= None Tremor Observation of Outstretched Hands: 1= Tremor [place], Not Seen Yawning Observation: 1= 1-2x During Session Anxiety or Irritability: 1=Feels Anxious/Irritable Goose Flesh Skin: 0=Smooth Skin COWS Score: 7 [facility] Progress Note (SOAP) Subjective: tired sweats change the time of the trazadone to 8pm Objective: 10/15/19 13:37 Vital Signs Temperature 97.5 F L 10/15/19 10:00 Pulse Rate 104 H 10/15/19 10:00 Respiratory Rate 20 10/15/19 10:00 Blood Pressure 132/87 10/15/19 10:00 O2 Sat by Pulse Oximetry (%) aaox3 lying in bed no acute distress Assessment: 10/15/19 13:37 mild withdrawals Plan: continue detox trazadone time changed to 8pm d/c in am
[2019-10-15] MEDS: METHOCARBAMOL 500 MG TABLET PO PRN (16:57)
[2019-10-15] MEDS: NICOTINE POLACRILEX 4 MG GUM BUC PRN (19:22)
[2019-10-15] MEDS: traZODone HCL 50 MG TABLET (FP) PO SCH ×2 (19:56→22:06)
[2019-10-15] MEDS: THIAMINE HCL 100 MG TABLET (FP) PO SCH (21:53)
[2019-10-16] MEDS ORDERED: METHADONE HCL 5 MG TABLET (FOR DETOX USE ONLY) PO ONE (06:00)
[2019-10-16] MEDS: METHOCARBAMOL 500 MG TABLET PO PRN ×3 (06:25→18:37)
[2019-10-16] MEDS: NICOTINE POLACRILEX 4 MG GUM BUC PRN ×4 (06:27→22:47)
[2019-10-16] MEDS: PRENATAL VITAMINS W/ FOLIC ACID TABLET (FP) PO SCH (10:52)
[2019-10-16] MEDS: NICOTINE 21 MG/24 HOURS TOPICAL PATCH TD SCH (10:52)
--- NOTE | 2019-10-16 13:12 | DS ---
[facility] Detox Discharge Summary Admission Date: 10/11/19 Discharge Date: 10/16/19 - History Present History: Alcohol Dependence, Opioid Dependence Pertinent Past History: 34 yo m w/ PMH PTSD, depresion, ADHD, Hep C (not treated), nicotine dependence and polysubstance abuse who completed detoxification from heroin and alcohol. Pt will f/u with PCP and outpt programs, requesting vistaril and muscle relaxant - Physical Exam Results Vital Signs: Vital Signs Temperature 97.3 F L 10/16/19 11:03 Pulse Rate 72 10/16/19 11:03 Respiratory Rate 16 10/16/19 11:03 Blood Pressure 128/69 10/16/19 11:03 O2 Sat by Pulse Oximetry (%) - Medication Discharge Medications: Ambulatory Orders Bupropion HCl [Wellbutrin Xl -] 150 mg PO BID 09/07/19 Prazosin HCl 5 mg PO HS 09/07/19 hydrOXYzine PAMOATE [Vistaril -] 100 mg PO BID 09/07/19 Naloxone HCl [Narcan] 4 mg NS ASDIR PRN #1 spray 09/08/19
[2019-10-16] MEDS: hydrOXYzine PAMOATE 25 MG CAPSULE (FP) PO PRN (17:36)
[2019-10-16] MEDS: traZODone HCL 50 MG TABLET (FP) PO SCH (22:47)
[2019-10-16] MEDS: THIAMINE HCL 100 MG TABLET (FP) PO SCH (22:47)
[2019-10-17 10:20] VITALS: BP 124/88; PULSE 79; TEMP 97
[2019-10-17] MEDS: PRENATAL VITAMINS W/ FOLIC ACID TABLET (FP) PO SCH (11:11)
[2019-10-17] MEDS: hydrOXYzine PAMOATE 25 MG CAPSULE (FP) PO PRN (11:12)
[2019-10-17] MEDS: METHOCARBAMOL 500 MG TABLET PO PRN (11:12)
[2019-10-17] MEDS: NICOTINE POLACRILEX 4 MG GUM BUC PRN ×2 (11:14→13:56)
[2019-10-17] MEDS: NICOTINE 21 MG/24 HOURS TOPICAL PATCH TD SCH (11:32)
--- NOTE | 2019-10-17 14:54 | DS ---
[facility] Detox Discharge Summary Admission Date: 10/11/19 Discharge Date: 10/17/19 - History Present History: Alcohol Dependence, Cannabis Dependence, Cocaine Dependence, Opioid Dependence Additional Comments: Pt is medically cleared and discharged today. Pt complete the detox protocol. Pt is encouraged to follow-up with an outpatient CD program and also to follow- up with his pmd. Pt verbalized understanding of the information given. Pt is alert and oriented x3 and in no acute respiratory distress. Pertinent Past History: h/o alcohol, cannabis, heroin, and cocaine use disorder. - Physical Exam Results Vital Signs: Vital Signs Temperature 97 F L 10/17/19 10:20 Pulse Rate 79 10/17/19 10:20 Respiratory Rate 16 10/17/19 10:20 Blood Pressure 124/88 10/17/19 10:20 O2 Sat by Pulse Oximetry (%) Vital Signs 10/17/19 10:20 Temperature 97 F L Pulse Rate 79 Respiratory 16 Rate Blood Pressure 124/88 Laboratory Last Values WBC 6.1 K/mm3 (4.0-10.0) 10/11/19 14:15 RBC 5.16 M/mm3 (4.00-5.60) 10/11/19 14:15 Hgb 15.0 GM/dL (11.7-16.9) 10/11/19 14:15 Hct 45.3 % (35.4-49) 10/11/19 14:15 MCV 87.7 fl (80-96) 10/11/19 14:15 MCH 29.0 pg (25.7-33.7) 10/11/19 14:15 MCHC 33.1 g/dl (32.0-35.9) 10/11/19 14:15 RDW 15.1 % (11.9-15.9) 10/11/19 14:15 Plt Count 288 K/MM3 (134-434) 10/11/19 14:15 MPV 8.4 fl (7.5-11.1) 10/11/19 14:15 Sodium 137 mmol/L (136-145) 10/11/19 14:15 Potassium 4.7 mmol/L (3.5-5.1) 10/11/19 14:15 Chloride 102 mmol/L (98-107) 10/11/19 14:15 Carbon Dioxide 29 mmol/L (21-32) 10/11/19 14:15 Anion Gap 6 MMOL/L (8-16) L 10/11/19 14:15 BUN 17.8 mg/dL (7-18) 10/11/19 14:15 Creatinine 1.1 mg/dL (0.55-1.3) 10/11/19 14:15 Est GFR (CKD-EPI)AfAm 99.57 10/11/19 14:15 Est GFR (CKD-EPI)NonAf 85.91 10/11/19 14:15 Random Glucose 81 mg/dL (74-106) 10/11/19 14:15 Calcium 9.1 mg/dL (8.5-10.1) 10/11/19 14:15 Total Bilirubin 0.6 mg/dL (0.2-1) 10/11/19 14:15 AST 75 U/L (15-37) H 10/11/19 14:15 ALT 81 U/L (13-61) H 10/11/19 14:15 Alkaline Phosphatase 73 U/L (45-117) 10/11/19 14:15 Total Protein 8.1 g/dl (6.4-8.2) 10/11/19 14:15 Albumin 4.0 g/dl (3.4-5.0) 10/11/19 14:15 Urine Color Yellow 10/12/19 08:00 Urine Appearance Clear 10/12/19 08:00 Urine pH 7.5 (5.0-8.0) D 10/12/19 08:00 Ur Specific [place] 1.012 (1.010-1.035) 10/12/19 08:00 Urine Protein Negative (NEGATIVE) 10/12/19 08:00 Urine Glucose (UA) Negative (NEGATIVE) 10/12/19 08:00 Urine Ketones Negative (NEGATIVE) 10/12/19 08:00 Urine Blood Negative (NEGATIVE) 10/12/19 08:00 Urine Nitrite Negative (NEGATIVE) 10/12/19 08:00 Urine Bilirubin Negative (NEGATIVE) 10/12/19 08:00 Urine Urobilinogen 0.2 mg/dL (0.2-1.0) 10/12/19 08:00 Ur Leukocyte Esterase Negative (NEGATIVE) 10/12/19 08:00 RPR Titer Nonreactive (NONREACTIVE) 10/11/19 14:15 HIV 1&2 Antibody Screen Negative 10/11/19 14:15 HIV P24 Antigen Negative 10/11/19 14:15 Labs noted. Pertinent Admission Physical Exam Findings: withdrawal symptoms. - Treatment Hospital Course: Detox Protocol Followed, Detoxed Safely, Responded well, Discharged Condition Good - Medication Discharge Medications: Ambulatory Orders Bupropion HCl [Wellbutrin Xl -] 150 mg PO BID 09/07/19 Prazosin HCl 5 mg PO HS 09/07/19 Methocarbamol [Robaxin -] 500 mg PO Q6H PRN 7 Days #14 tablet 10/16/19 Naloxone HCl [Narcan] 4 mg NS ASDIR PRN #1 spray 10/16/19 hydrOXYzine PAMOATE [Vistaril -] 50 mg PO BID #10 capsule 10/16/19 - Diagnosis (1) Alcohol dependence with uncomplicated withdrawal Current Visit: Yes Status: Acute (2) Opioid dependence with withdrawal Current Visit: Yes Status: Acute (3) Cannabis dependence Current Visit: Yes Status: Chronic (4) Cocaine dependence Current Visit: Yes Status: Chronic Qualifiers: Substance use status: uncomplicated Qualified Code(s): F14.20 - Cocaine dependence, uncomplicated (5) Elevated liver enzymes Current Visit: No Status: Acute (6) Hepatitis C Current Visit: No Status: Chronic Qualifiers: Viral hepatitis chronicity: chronic (7) Methamphetamine abuse Current Visit: No Status: Chronic (8) Nicotine dependence Current Visit: No Status: Chronic Qualifiers: Nicotine product type: cigarettes Substance use status: uncomplicated Qualified Code(s): F17.210 - Nicotine dependence, cigarettes, uncomplicated (9) Opioid dependence with withdrawal Current Visit: No Status: Chronic - AMA Did Patient Leave Against Medical Advice: No
== END 2019-10-17 14:05 | disposition home or self-care (01) | DRG 773 ==
LOC: YASAS 12:26 → Y6N 14:54
PROVIDERS: ADMIT Allergy & Immunology; ATTEND Allergy & Immunology
PROC: HZ2ZZZZ Detoxification Services for Substance Abuse Treatment (ICD-10-PCS; principal; 2019-10-11)
DX: F11.23 Opioid dependence with withdrawal (principal); F10.230 Alcohol dependence with withdrawal, uncomplicated; F14.20 Cocaine dependence, uncomplicated; F12.20 Cannabis dependence, uncomplicated; F17.210 Nicotine dependence, cigarettes, uncomplicated; F19.24 Other psychoactive substance dependence with psychoactive substance-induced mood disorder; F43.10 Post-traumatic stress disorder, unspecified; F90.9 Attention-deficit hyperactivity disorder, unspecified type; F32.9 Major depressive disorder, single episode, unspecified; R94.5 Abnormal results of liver function studies; B18.2 Chronic viral hepatitis C; G47.00 Insomnia, unspecified; R00.1 Bradycardia, unspecified; Z86.14 Personal history of Methicillin resistant Staphylococcus aureus infection; Z62.810 Personal history of physical and sexual abuse in childhood
CPT/HCPCS: 36415; 80053; 81003; 85027; 86593; 87389; 93005; 93010; J0735